=== PATIENT | female | born 1935 | race Caucasian/White ===

== ENCOUNTER → 2016-04-12 | Outpatient (CLI) | payer OTHER ==
[~2016-04-12] MED LIST: ASPI81TA28 PO; CALC600T9 PO; CENTTAB41 PO; FISHOIL PO; FLUTICASONE INH; FSM70 PO; LEVO25TA34 PO; LISI5TAB3 PO; MAGNESIUM PO; Vitamin D PO
[2016-04-12 10:33] LABS: BLOOD UREA NITROGEN 25 mg/dl (7-18); BUN/CREATININE RATIO 30.4 (10-20); CALCIUM 9.6 mg/dl (8.5-10.1); CARBON DIOXIDE 32 mmol/L (21-32); CHLORIDE 103 mmol/L (98-107); CREATININE 0.81 mg/dl (0.60-1.20); GLUCOSE 111 mg/dl (70-99); POTASSIUM 4.5 mmol/L (3.5-5.1); SODIUM 143 mmol/L (136-145)
== END | disposition home or self-care (01) ==
LOC: C.LABFOXMH 10:06
PROVIDERS: ATTEND Internal Medicine
DX: R60.0 Localized edema (principal)

== ENCOUNTER → 2016-07-21 | Outpatient (CLI) | payer OTHER ==
--- NOTE | 2016-07-21 13:57 | MAMMOGRAPHY REPORT ---
BILATERAL DIGITAL DIAGNOSTIC MAMMOGRAM TOMOSYNTHESIS WITH CAD: 07/21/2016 CLINICAL HISTORY: Short interval follow-up of right breast calcifications and right breast asymmetri es. TECHNIQUE: Breast tomosynthesis in addition to standard 2D mammography was performed. Current study was also evaluated with a Computer Aided Detection (CAD) system. Bilateral CC and MLO 2-D and chelle synthesis images and spot magnification right CC and ML views were obtained. COMPARISON: Comparison is made to exams dated: 01/05/2016 mammogram, 06/13/2015 mammogram, 06/04/2015 u ltrasound, 06/04/2015 mammogram, 05/28/2015 mammogram, and 05/16/2014 [facility] emergency department - [facility]. BREAST COMPOSITION: There are scattered areas of fibroglandular density in both breasts. FINDINGS: Spot magnification views of the right breast again demonstrate a small 2 mm cluster of calcification s in the right lower inner quadrant. The calcifications do not appear significantly changed in numb er compared to the January 2016 exam, however, some of the calcifications appear more coarsened. Wh en reviewing prior mammograms, the calcifications do appear increased compared to prior exams includ ing the May 2015 exam. Given the interval increase, stereotactic biopsy is recommended. On di scussion, however, the patient prefers follow-up as opposed to biopsy. The remainder of both breasts are stable compared to prior exams, without suspicious masses, calcifi cations, or areas of architectural distortion noted. The previously described asymmetries seen with in the right upper outer quadrant are stable dating back to at least the April 2013 exam, and are felt to be benign given long-term stability. Other scattered bilateral benign-appearing calcificati ons are stable. IMPRESSION: ACR-BI-RADS CATEGORY 3: PROBABLY BENIGN 1. Small cluster of calcifications in the right lower inner quadrant is not significantly changed c ompared to the January 2016 exam, but appear increased compared to exams prior to January 2016. The calcifications are indeterminate and stereotactic biopsy is recommended for further evaluation. Af ter discussion with the patient, she prefers short interval follow-up as opposed biopsy. Therefore, recommend follow-up diagnostic tomosynthesis mammograms of the right breast in 6 months to reevalua te. 2. The right upper outer quadrant asymmetries are stable dating back to at least the April 2013 e xam and are considered benign given long-term stability. 3. No mammographic evidence of malignancy in the left breast. The patient has been verbally notified of the results. Approximately 10% of breast cancers are not detected with mammography. A negative mammographic repor t should not delay biopsy if a clinically suggestive mass is present. Sushila Padilla M.D. ah/:07/21/2016 12:01:58 [employer] Supervisor: Latosha DING)(Kira), [facility] letter sent: Follow Up Recommended 3 BI-RADS Code: ACR-BI-RADS Category 3: Probably Benign
== END | disposition home or self-care (01) ==
LOC: C.MAMM 11:13
PROVIDERS: ATTEND Internal Medicine
DX: R92.1 Mammographic calcification found on diagnostic imaging of breast (principal); R92.8 Other abnormal and inconclusive findings on diagnostic imaging of breast; C95.10 Chronic leukemia of unspecified cell type not having achieved remission; E03.9 Hypothyroidism, unspecified; R78.89 Finding of other specified substances, not normally found in blood

== ENCOUNTER 2017-06-21 13:38 | Observation (INO) | payer OTHER ==
[~2017-06-21] VITALS: Ht 152.4 cm; Wt 103.5 kg
[~2017-06-21 13:38] MED LIST changes: +IMPRIMIS OP SCH
[2017-06-21 14:47] LABS: HEMATOCRIT 44.1 % (37-47); HEMOGLOBIN 14.6 g/dL (12.0-16.0); MEAN CELL VOLUME 97.1 fL (80-100); MEAN CORPUSCULAR HEMOGLOBIN 32.2 pg (25-34); MEAN CORPUSCULAR HGB CONC 33.1 g/dl (32-36); MEAN PLATELET VOLUME 9.6 fL (7.4-10.4); PLATELET COUNT 162 K/uL (130-400); RED CELL DISTRIBUTION WIDTH CV 13.4 % (11.5-14.5); RED CELL DISTRIBUTION WIDTH SD 47.9 fL (36.4-46.3); WHITE BLOOD COUNT 13.48 K/uL (4.8-10.8)
[2017-06-21] MEDS ORDERED: FLUT50SP45 NAE (14:51)
[2017-06-21] MEDS ORDERED: POTA10CA28 PO (14:51)
[2017-06-21] MEDS ORDERED: FSM70 PO (14:51)
[2017-06-21] MEDS ORDERED: LEVO25TA PO (14:51)
[2017-06-21] MEDS ORDERED: MULT-506 PO (14:51)
--- NOTE | 2017-06-21 15:16 | DIAGNOSTIC IMAGING REPORT ---
CHEST ONE VIEW PORTABLE CLINICAL HISTORY: Respiratory distress COMPARISON STUDY: 02/11/2015 FINDINGS: The heart remains mildly enlarged. There is persistent prominence of central pulmonary arteries. There is no overt failure. There is no lobar consolidation. There is a stable area of nodular scarring within the left midlung zone.[ IMPRESSION: No significant change from the preceding 2014 study. No acute findings Electronically signed by: Dheeraj Allan M.D. 06/21/2017 3:14 PM Dictated Date/Time: 06/21/2017 3:14 PM
[2017-06-21 15:26] LABS: ALBUMIN 3.6 gm/dl (3.4-5.0); ALKALINE PHOSPHATASE 84 U/L (45-117); ALT/SGPT 22 U/L (12-78); BLOOD UREA NITROGEN 23 mg/dl (7-18); CALCIUM 9.3 mg/dl (8.5-10.1); CARBON DIOXIDE 29 mmol/L (21-32); CREATININE 1.08 mg/dl (0.60-1.20); GLUCOSE 137 mg/dl (70-99); SODIUM 139 mmol/L (136-145); TOTAL PROTEIN 6.8 gm/dl (6.4-8.2)
[2017-06-21 15:41] LABS: BASO % 0.2 %; BASO ABS # 0.03 K/uL (0-0.2); EOS % 1.3 %; EOS ABS # 0.17 K/uL (0-0.5); IG# 0.05 K/uL (0.00-0.02); LYMPH % 53.2 %; LYMPH ABS # 7.17 K/uL (1.2-3.4); MONO % 6.7 %; NEUT % 38.2 %; NEUT ABS # 5.16 K/uL (1.4-6.5)
[2017-06-21] MEDS ORDERED: FUROSEMIDE 40 MG/4 ML VIAL IV STA ×2 (16:03→16:06)
[2017-06-21] MEDS: NITROGLYCERIN 2% OINTMENT 30GM TUBE EXT SCH ×2 (16:20→22:43)
[2017-06-21] MEDS ORDERED: HydrALAZINE HCL 20 MG/ML VIAL IV. PRN (18:00)
--- NOTE | 2017-06-21 18:30 | History and Physical ---
History & Physical Date & Time of Service: Jun 21, 2017 at 17:56 Chief Complaint: Irratic Breathing, Swollen Ankles Primary Care Physician: Gallo Saravia M.D. History of Present Illness Source: patient Patient is a pleasant 81yo C female with history of CLL on surveillance, HTN, Hypothyroidism presenting with shortness of breath, "irratic breathing" and bilateral LE edema. Patient had right cataract surgery today and was noted to be very short of breath. She was sent to her PCPs office and subsequently transferred to [facility] ER due to concern for elevated blood pressure and shortness of breath. The patient states that she has had a progressive decrease in exercise tolerance with easy fatigability and PETERS for the last 4-5 months with rapid progresssion over the last 2 weeks. She also endorses worsening bilateral LE edema over the last two weeks and some orthopnea. On arrival to the ER she was found to be hypertensive 179/88 with O2 sats 92% on room air. She was administered Lasix 20mg IV and Nitropaste x 1 inch. Patient presently complaining of mild shortness of breath and PETERS. No CP/palpitations/GIRALDO/visual changes. No dizziness/numbness/tingling or weakness. She reports not taking her medications today due to surgery. She also reports self-discontinuing her Synthroid 4-5 months ago. No additional complaints. ER Course: Nitropaste x 1 inch, Lasix 20mg IV Past Medical/Surgical History Medical Problems: (1) Chronic lymphocytic leukemia (CLL), B-cell (2) Hypertension (3) Hypothyroidism (4) Osteoporosis (5) "Hole in heart" Surgical Problems: (1) Total knee replacement status bilateral (2) Tonsillectomy (3) Appendectomy Family History Hypertension CVA Colorectal cancer Diabetes Social History , lives with at [facility] Active and independent in ADLs Smoking Status: Former Smoker Smokeless Tobacco Use: No Alcohol Use: occasionally Drug Use: none Marital Status: Housing status: lives with family Occupational Status: retired Immunizations History of Influenza Vaccine: N/A History of Tetanus Vaccine?: No History of Pneumococcal: Yes Pneumococcal Date: August 20, 2009 History of Hepatitis B Vaccine: No Allergies Coded Allergies: No Known Allergies (Verified , 06/21/17) Home Medications Scheduled Alendronate Sodium (Alendronate Sodium), 70 MG PO WK Aspirin (Aspirin Ec), 81 MG PO DAILY Fluticasone Propionate (Nasal) (Allergy Nasal [place] 24 Ho), 2 SPRAYS ADRIANA DAILY Levothyroxine Sodium (Synthroid), 25 MCG PO DAILY Multivitamin (Multivitamin), 1 TAB PO DAILY Potassium Chloride (Micro-K Ext Rel), 10 MEQ PO DAILY Review of Systems Constitutional: No fever, No chills, No weight loss Eyes: No worsening of vision, No diplopia ENT: No hearing loss Respiratory: + shortness of breath, + dyspnea on exertion, + dyspnea at rest, No cough, No sputum, No hemoptysis Cardiovascular: + orthopnea, + edema, No chest pain, No palpitations Abdomen: No pain, No nausea, No vomiting, No diarrhea Genitourinary - Female: No dysuria Neurologic: No weakness, No numbness/tingling, No balance problems Physical Exam Vital Signs Date Time Temp Pulse Resp B/P (MAP) Pulse Ox O2 Delivery O2 Flow Rate FiO2 06/21/17 17:30 75 16 129/84 96 Nasal Cannula 2.0 06/21/17 16:41 80 16 201/95 97 Nasal Cannula 2.0 06/21/17 15:42 88 24 217/130 98 Nasal Cannula 2.0 06/21/17 14:30 75 24 167/108 96 Nasal Cannula 2.0 06/21/17 14:28 73 06/21/17 14:10 92 Room Air 06/21/17 14:10 92 Room Air 06/21/17 14:10 72 22 179/88 92 Room Air 06/21/17 13:54 92 Nasal Cannula 2.0 06/21/17 13:45 36.4 81 20 151/90 91 Room Air BP 156/82 RUE during my encounter, HR 77 and regular, RR=16, 96% on 2L NC General Appearance: no apparent distress Head: normocephalic (Right pupil dilated, minimally reactive, post-operative changes), atraumatic Eyes: EOMI ENT: normal ENT inspection, hearing grossly normal Neck: supple, no adenopathy, thyroid normal, no JVD Respiratory/Chest: chest non-tender, lungs clear (equal air entry bilaterally, +crackles right mid lung field, no rhonchi/wheezes), no respiratory distress ( patient did become mildly dyspnic with ambulation to the restroom), no accessory muscle use Cardiovascular: regular rate, rhythm, no edema (trace nonpitting LE edema bilaterally), no gallop, no JVD, no murmur (2/6 JOE left sternal border), normal peripheral pulses Abdomen/GI: normal bowel sounds, non tender, soft, no organomegaly Extremities/Musculoskelatal: no calf tenderness, normal capillary refill Neurologic/Psych: alert, oriented x 3 Skin: normal color, warm/dry, no rash Diagnostics Laboratory Results Results Past 24 Hours Test 06/21/17 14:28 06/21/17 15:30 06/21/17 16:09 06/21/17 16:30 Range/Units White Blood Count 13.48 4.8-10.8 K/uL Red Blood Count 4.54 4.2-5.4 M/uL Hemoglobin 14.6 12.0-16.0 g/dL Hematocrit 44.1 37-47 % Mean Corpuscular Volume 97.1 80-100 fL Mean Corpuscular Hemoglobin 32.2 25-34 pg Mean Corpuscular Hemoglobin Concent 33.1 32-36 g/dl Platelet Count 162 130-400 K/uL Mean Platelet Volume 9.6 7.4-10.4 fL Neutrophils (%) (Auto) 38.2 % Lymphocytes (%) (Auto) 53.2 % Monocytes (%) (Auto) 6.7 % Eosinophils (%) (Auto) 1.3 % Basophils (%) (Auto) 0.2 % Neutrophils # (Auto) 5.16 1.4-6.5 K/uL Lymphocytes # (Auto) 7.17 1.2-3.4 K/uL Monocytes # (Auto) 0.90 0.11-0.59 K/uL Eosinophils # (Auto) 0.17 0-0.5 K/uL Basophils # (Auto) 0.03 0-0.2 K/uL RDW Standard Deviation 47.9 36.4-46.3 fL RDW Coefficient of Variation 13.4 11.5-14.5 % Immature Granulocyte % (Auto) 0.4 % Immature Granulocyte # (Auto) 0.05 0.00-0.02 K/uL Smudge Cells PRESENT Prothrombin Time 10.0 9.0-12.0 SECONDS Prothromb Time International Ratio 1.0 0.9-1.1 Activated Partial Thromboplast Time 23.0 21.0-31.0 SECONDS Partial Thromboplastin Ratio 0.9 Sodium Level 139 136-145 mmol/L Potassium Level 4.0 3.5-5.1 mmol/L Chloride Level 103 98-107 mmol/L Carbon Dioxide Level 29 21-32 mmol/L Anion Gap 6.0 3-11 mmol/L Blood Urea Nitrogen 23 7-18 mg/dl Creatinine 1.08 0.60-1.20 mg/dl Est Creatinine Clear Calc Drug Dose 45.8 ml/min Estimated GFR () 56.5 Estimated GFR (Non- 48.8 BUN/Creatinine Ratio 21.0 10-20 Random Glucose 137 70-99 mg/dl Calcium Level 9.3 8.5-10.1 mg/dl Total Bilirubin 0.9 0.2-1 mg/dl Aspartate Amino Transf (AST/SGOT) 14 15-37 U/L Alanine Aminotransferase (ALT/SGPT) 22 12-78 U/L Alkaline Phosphatase 84 45-117 U/L Troponin I < 0.015 0-0.045 ng/ml Pro-B-Type Natriuretic Peptide 55 0-1800 pg/ml Total Protein 6.8 6.4-8.2 gm/dl Albumin 3.6 3.4-5.0 gm/dl Globulin 3.2 2.5-4.0 gm/dl Albumin/Globulin Ratio 1.1 0.9-2 Urine Color YELLOW Urine Appearance CLOUDY CLEAR Urine pH 5.0 4.5-7.5 Urine Specific [place] 1.025 1.000-1.030 Urine Protein NEG NEG Urine Glucose (UA) NEG NEG Urine Ketones NEG NEG Urine Occult Blood NEG NEG Urine Nitrite NEG NEG Urine Bilirubin NEG NEG Urine Urobilinogen NEG NEG Urine Leukocyte Esterase NEG NEG Urine WBC (Auto) 1-5 0-5 /hpf Urine RBC (Auto) 0-4 0-4 /hpf Urine Hyaline Casts (Auto) 1-5 0-5 /lpf Urine Epithelial Cells (Auto) >30 0-5 /lpf Urine Bacteria (Auto) NEG NEG Diagnostic Radiology CHEST ONE VIEW PORTABLE CLINICAL HISTORY: Respiratory distress COMPARISON STUDY: 02/11/2015 FINDINGS: The heart remains mildly enlarged. There is persistent prominence of central pulmonary arteries. There is no overt failure. There is no lobar consolidation. There is a stable area of nodular scarring within the left midlung zone.[ IMPRESSION: No significant change from the preceding 2015 study. No acute findings EKG The study demonstrates normal sinus rhythm at 74bpm, right axis deviation, normal intervals, no ischemic changes. Interpreted by me Impression Assessment and Plan 81 yo C female presenting with 2 weeks of progressive PETERS/SOB and LE edema. 1. Dyspnea - patient presently on 2L O2 by MS with adequate oxygenation, no evidence of respiratory distress. She did become mildly dyspneic with ambulation. Unclear etiology. Patient with no evidence of infection, no documented history of COPD or CHF although with significant smoking history. Wells score for PE = 1 point for malignancy, low risk group, PE unlikely. -Will check 2D echocardiogram - longstanding history of HTN and "hole in heart" -Provide supplemental O2 as needed to maintain SaO2 > 94% 2. LE edema - progressive x 2 weeks. -Check UA for protein -Check TSH and T4, patient with documented history of hypothyroidism, nonadherant to medical management -2D echocardiogram as above -Check LFTs x 1 3. HTN - patient with markedly elevated blood pressures in ED, 156/82 on my assessment. DId not take medications today -Resume home Valsartan-HCTZ 80/12.5mg daily -Hydralazine 5mg IV q 4 hours PRN SBP>170mmHg PRN -Continue to monitor 4. Hypothyroidims - patient reports self discontinuing medications 4-5 months ago -Check TSH, T4 -Resume home Synthroid dose 25mcg po daily 5. F/E/N - Heplock. Monitor electrolytes and replete as needed. AHA diet as tolerated 6. Ppx - Lovenox 40 7. Code - DNR/DNI per discussion with patient 8. Disposition - Medical observation. Anticipate < 2 midnight stay Resuscitation Status DNR VTE Prophylaxis Will order VTE Prophylaxis: Yes
--- NOTE | 2017-06-21 19:24 | EMERGENCY ROOM VISIT NOTE ---
History Report prepared by Nessa: Trina Obrien Under the Supervision of: Dr. Lion Humphries D.O. First contact with patient: 13:55 Chief Complaint: SHORTNESS OF BREATH Stated Complaint: IRRATIC BREATHING, SWOLLEN ANKLES History of Present Illness The patient is a 81 year old female who presents to the Emergency Room with complaints of constant shortness of breath beginning STANDARDS ANALYST. She had cataract surgery this morning and her provider found her to be short of breath after surgery. They recommended that she follow-up with her PCP later today. The patient returned to [facility] and saw her PCP. He also found her to be short of breath and advised her to come to the ED for further evaluation. The patient does not normally wear oxygen. She is typically up and walking around without feeling short of breath. The patient reports some shortness of breath and a slight cough at this time. She also notes swelling in her legs bilaterally. She is unsure when this swelling began. Pt denies headache, change in vision, fevers, chest pain, nausea, vomiting, diarrhea, abdominal pain, pain with urination, and melena. She denies any personal history of heart failure, COPD, or asthma. Source of History: patient Onset: STANDARDS ANALYST Position: chest Quality: other (shortness of breath) Timing: constant Associated Symptoms: + cough, No fevers, No headache, No chest pain, No nausea, No vomiting, No abdominal pain, No melena, No diarrhea, No urinary symptoms Note: Pt notes swelling to legs bilaterally. Review of Systems See HPI for pertinent positives & negatives. A total of 10 systems reviewed and were otherwise negative. Past Medical & Surgical Medical Problems: (1) Chronic lymphocytic leukemia (CLL), B-cell (2) Dyspnea (3) Hypertension Nos (4) Hypothyroidism Nos (5) Lumb/Lumbosac Disc Degen (6) Osteoporosis Surgical Problems: (1) Total knee replacement status Family History Non-pertinent due to advanced age. Social History Smoking Status: Former Smoker Marital Status: Housing Status: lives with significant other Occupation Status: unemployed Current/Historical Medications Scheduled Alendronate Sodium (Alendronate Sodium), 70 MG PO WK Aspirin (Aspirin Ec), 81 MG PO DAILY Fluticasone Propionate (Nasal) (Allergy Nasal [place] 24 Ho), 2 SPRAYS ADRIANA DAILY Levothyroxine Sodium (Synthroid), 25 MCG PO DAILY Multivitamin (Multivitamin), 1 TAB PO DAILY Potassium Chloride (Micro-K Ext Rel), 10 MEQ PO DAILY Allergies Coded Allergies: No Known Allergies (Verified , 06/21/17) Physical Exam Vital Signs Date Time Temp Pulse Resp B/P (MAP) Pulse Ox O2 Delivery O2 Flow Rate FiO2 06/21/17 17:30 75 16 129/84 96 Nasal Cannula 2.0 06/21/17 16:41 80 16 201/95 97 Nasal Cannula 2.0 06/21/17 15:42 88 24 217/130 98 Nasal Cannula 2.0 06/21/17 14:30 75 24 167/108 96 Nasal Cannula 2.0 06/21/17 14:28 73 06/21/17 14:10 92 Room Air 06/21/17 14:10 92 Room Air 06/21/17 14:10 72 22 179/88 92 Room Air 06/21/17 13:54 92 Nasal Cannula 2.0 06/21/17 13:45 36.4 81 20 151/90 91 Room Air Physical Exam GENERAL: Sitting up in bed, dyspneic with conversation, alert, well appearing, well nourished, minimal distress, non-toxic EYE EXAM: normal conjunctiva. Right pupil dilated. OROPHARYNX: no exudate, no erythema, lips, buccal mucosa, and tongue normal and mucous membranes are moist NECK: supple, no nuchal rigidity, no adenopathy, non-tender LUNGS: Diminished at bilateral bases. Normal chest wall mechanics HEART: no murmurs, S1 normal and S2 normal ABDOMEN: abdomen soft, non-tender, normo-active bowel sounds, no masses, no rebound or guarding. BACK: Back is symmetrical on inspection and there is no deformity, no midline tenderness, no CVA tenderness. SKIN: no rashes and no bruising UPPER EXTREMITIES: upper extremities are grossly normal. LOWER EXTREMITIES: Legs equal bilaterally with pitting edema. NEURO EXAM: Normal sensorium, cranial nerves II-XII grossly intact, normal speech, no gross weakness of arms, no gross weakness of legs. Medical Decision & Procedures ER Provider Diagnostic Interpretation: Radiology results as stated below per my review and the radiologist's interpretation: CHEST ONE VIEW PORTABLE CLINICAL HISTORY: Respiratory distress COMPARISON STUDY: 02/11/2015 FINDINGS: The heart remains mildly enlarged. There is persistent prominence of central pulmonary arteries. There is no overt failure. There is no lobar consolidation. There is a stable area of nodular scarring within the left midlung zone.[ IMPRESSION: No significant change from the preceding 2015 study. No acute findings Electronically signed by: Dheeraj Allan M.D. 06/21/2017 3:14 PM Dictated Date/Time: 06/21/2017 3:14 PM Laboratory Results 06/21/17 14:28 Red Blood Count 4.54, Mean Corpuscular Volume 97.1, Mean Corpuscular Hemoglobin 32.2, Mean Corpuscular Hemoglobin Concent 33.1, Mean Platelet Volume 9.6, Neutrophils (%) (Auto) 38.2, Lymphocytes (%) (Auto) 53.2, Monocytes (%) (Auto) 6.7, Eosinophils (%) (Auto) 1.3, Basophils (%) (Auto) 0.2, Neutrophils # (Auto) 5.16, Lymphocytes # (Auto) 7.17, Monocytes # (Auto) 0.90, Eosinophils # (Auto) 0.17, Basophils # (Auto) 0.03 06/21/17 14:28 06/21/17 16:09 Test 06/21/17 14:28 06/21/17 15:30 06/21/17 16:09 06/21/17 16:30 White Blood Count 13.48 K/uL (4.8-10.8) Red Blood Count 4.54 M/uL (4.2-5.4) Hemoglobin 14.6 g/dL (12.0-16.0) Hematocrit 44.1 % (37-47) Mean Corpuscular Volume 97.1 fL (80-100) Mean Corpuscular Hemoglobin 32.2 pg (25-34) Mean Corpuscular Hemoglobin Concent 33.1 g/dl (32-36) Platelet Count 162 K/uL (130-400) Mean Platelet Volume 9.6 fL (7.4-10.4) Neutrophils (%) (Auto) 38.2 % Lymphocytes (%) (Auto) 53.2 % Monocytes (%) (Auto) 6.7 % Eosinophils (%) (Auto) 1.3 % Basophils (%) (Auto) 0.2 % Neutrophils # (Auto) 5.16 K/uL (1.4-6.5) Lymphocytes # (Auto) 7.17 K/uL (1.2-3.4) Monocytes # (Auto) 0.90 K/uL (0.11-0.59) Eosinophils # (Auto) 0.17 K/uL (0-0.5) Basophils # (Auto) 0.03 K/uL (0-0.2) RDW Standard Deviation 47.9 fL (36.4-46.3) RDW Coefficient of Variation 13.4 % (11.5-14.5) Immature Granulocyte % (Auto) 0.4 % Immature Granulocyte # (Auto) 0.05 K/uL (0.00-0.02) Smudge Cells PRESENT Prothrombin Time 10.0 SECONDS (9.0-12.0) Prothromb Time International Ratio 1.0 (0.9-1.1) Activated Partial Thromboplast Time 23.0 SECONDS (21.0-31.0) Partial Thromboplastin Ratio 0.9 Anion Gap 6.0 mmol/L (3-11) Est Creatinine Clear Calc Drug Dose 45.8 ml/min Estimated GFR () 56.5 Estimated GFR (Non- 48.8 BUN/Creatinine Ratio 21.0 (10-20) Calcium Level 9.3 mg/dl (8.5-10.1) Total Bilirubin 0.9 mg/dl (0.2-1) Alanine Aminotransferase (ALT/SGPT) 22 U/L (12-78) Alkaline Phosphatase 84 U/L (45-117) Troponin I < 0.015 ng/ml (0-0.045) Pro-B-Type Natriuretic Peptide 55 pg/ml (0-1800) Total Protein 6.8 gm/dl (6.4-8.2) Albumin 3.6 gm/dl (3.4-5.0) Globulin 3.2 gm/dl (2.5-4.0) Albumin/Globulin Ratio 1.1 (0.9-2) Thyroid Stimulating Hormone (TSH) 2.280 uIu/ml (0.300-4.500) Free Thyroxine 1.14 ng/dl (0.80-1.60) Aspartate Amino Transf (AST/SGOT) 14 U/L (15-37) Urine Color YELLOW Urine Appearance CLOUDY (CLEAR) Urine pH 5.0 (4.5-7.5) Urine Specific [place] 1.025 (1.000-1.030) Urine Protein NEG (NEG) Urine Glucose (UA) NEG (NEG) Urine Ketones NEG (NEG) Urine Occult Blood NEG (NEG) Urine Nitrite NEG (NEG) Urine Bilirubin NEG (NEG) Urine Urobilinogen NEG (NEG) Urine Leukocyte Esterase NEG (NEG) Urine WBC (Auto) 1-5 /hpf (0-5) Urine RBC (Auto) 0-4 /hpf (0-4) Urine Hyaline Casts (Auto) 1-5 /lpf (0-5) Urine Epithelial Cells (Auto) >30 /lpf (0-5) Urine Bacteria (Auto) NEG (NEG) Laboratory results per my review. Medications Administered Medications (Trade) Dose Ordered Sig/Kathryn Route Start Time Stop Time Status Last Admin Dose Admin Nitroglycerin (Nitroglycerin 2% Oint) 1 inch Q6H EXT 06/21/17 16:15 07/21/17 16:14 06/21/17 16:20 1 INCH Furosemide (Lasix Inj) 20 mg NOW STAT IV 06/21/17 16:06 06/21/17 16:07 DC 06/21/17 16:20 20 MG ECG Per My Interpretation Indication: SOB/dyspnea Rate (beats per minute): 74 Rhythm: normal sinus Findings: Q waves (Septal), other (normal axis) ED Course ED COURSE: Vital signs were reviewed and showed hypertensive. The patients medical record was reviewed The above diagnostic studies were performed and reviewed. ED treatments and interventions as stated above. 1355: The patient was evaluated in room C6. A complete history and physical examination was performed. 1532: I reassessed the patient and she will have an ambulatory trial. 1550: The patient's O2 saturation dropped to 85% while walking. 1606: Lasix 20 mg IV 1615: Nitroglycerin 9 inch EXT 1627: Upon reevaluation, the patient is resting comfortably. I discussed my findings with the patient and she understands and agrees with the treatment plan. Based on the patients age, coexisting illnesses, exam and lab findings the decision to treat as an inpatient was made. The patient remained stable while under my care. The patient will be evaluated for further management. 1629: I spoke with Dr. Roa. We discussed the patient's case. The patient will be evaluated by the [facility] for further management. Medical Decision Differential diagnoses includes but is not limited to pneumonia, bronchitis, COPD/Asthma exacerbation, pneumothorax, pulmonary embolism, congestive heart failure, acute coronary syndrome. Patient is a 81-year-old female who presents to ER referred in by PCP for shortness of breath. Recently has had some weight gain. She has bilateral pitting edema on lower extremities. CBC shows a mild leukocytosis. BMP along with LFTs, bilirubin and troponin were negative. BNP was negative. UA was normal. Chest x-ray was unremarkable. She did have extensive pitting edema in the lower extremities. She was hypoxic on ambulation. With her recent weight gain and to give her a small dose of Lasix. She was fairly hypertensive in 200s and was placed on Nitropaste. She was in no respiratory distress. She was admitted to internal medicine with shortness of breath, hypoxia and likely CHF. Medication Reconcilliation Current Medication List: was personally reviewed by me Blood Pressure Screening Patient's blood pressure: Elevated blood pressure Blood pressure disposition: Elevated BP felt to be situational Consults Time Called: 1627 Consulting Physician: Dr. Roa Returned Call: [address] Roa. We discussed the patient's case. The patient will be evaluated by the [facility] for further management. Impression Primary Impression: Shortness of breath Additional Impressions: Hypoxia CHF (congestive heart failure) Scribe Attestation The scribe's documentation has been prepared under my direction and personally reviewed by me in its entirety. I confirm that the note above accurately reflects all work, treatment, procedures, and medical decision making performed by me. Departure Information Dispostion Being Evaluated By Hospitalist Referrals Gallo Saravia M.D. (PCP) Patient Instructions My [facility] Problem Qualifiers Additional Impressions: CHF (congestive heart failure) Heart failure type: unspecified Heart failure chronicity: unspecified Qualified Codes: I50.9 - Heart failure, unspecified
[2017-06-21] MEDS ORDERED: ENOXAPARIN 40 MG/0.4 ML SYR SQ SCH (20:00)
[2017-06-21] MEDS ORDERED: IV FLUIDS COMPLETED PRN (20:15)
[2017-06-21 20:16] VITALS: BP 135/76; PULSE 74; TEMP 36.8; O2SAT 96; Ht 152.4 cm; Wt 103.5 kg
[2017-06-21] MEDS ORDERED: VALSARTAN/HCTZ 80/12.5 MG TAB PO SCH (21:00)
[2017-06-21] MEDS ORDERED: HYDROCHLOROTHIAZIDE 25 MG TAB PO SCH (21:00)
[2017-06-21] MEDS ORDERED: VALSARTAN 80 MG TAB PO SCH (21:00)
[2017-06-21 22:43] VITALS: BP 143/82; PULSE 75
[2017-06-21 23:39] VITALS: BP 112/74; PULSE 72; TEMP 36.9; O2SAT 95
[2017-06-22] MEDS ORDERED: LEVOTHYROXINE 25 MCG TAB PO SCH (06:30)
[2017-06-22 07:05] VITALS: BP 112/67; PULSE 77; TEMP 36.4; O2SAT 96
[2017-06-22 07:15] LABS: HEMOGLOBIN 14.2 g/dL (12.0-16.0); MEAN CELL VOLUME 98.2 fL (80-100); MEAN CORPUSCULAR HEMOGLOBIN 31.7 pg (25-34); MEAN CORPUSCULAR HGB CONC 32.3 g/dl (32-36); MEAN PLATELET VOLUME 9.6 fL (7.4-10.4); PLATELET COUNT 155 K/uL (130-400); RED CELL DISTRIBUTION WIDTH CV 13.2 % (11.5-14.5); RED CELL DISTRIBUTION WIDTH SD 47.2 fL (36.4-46.3); WHITE BLOOD COUNT 14.97 K/uL (4.8-10.8)
[2017-06-22 07:31] LABS: CALCIUM 9.4 mg/dl (8.5-10.1); CREATININE 0.96 mg/dl (0.60-1.20); PHOSPHORUS 3.5 mg/dl (2.5-4.9)
[2017-06-22 08:00] VITALS: O2SAT 96
[2017-06-22 08:03] LABS: BASO % 0.2 %; BASO ABS # 0.03 K/uL (0-0.2); EOS % 1.3 %; IG# 0.03 K/uL (0.00-0.02); LYMPH ABS # 8.69 K/uL (1.2-3.4); MONO % 7.7 %; MONO ABS # 1.15 K/uL (0.11-0.59); NEUT % 32.6 %; NEUT ABS # 4.87 K/uL (1.4-6.5)
[2017-06-22] MEDS ORDERED: FLUTICASONE PROPIONATE NA SPR 16 GM BTL NAE SCH (09:00)
[2017-06-22] MEDS ORDERED: MULTIVITAMIN TAB PO SCH (09:00)
[2017-06-22] MEDS ORDERED: ASPIRIN 81 MG ECTAB PO SCH (09:00)
[2017-06-22] MEDS ORDERED: DVN80 PO ×2 (10:32→10:41)
[2017-06-22] MEDS ORDERED: HYDR25TA5 PO (10:32)
--- NOTE | 2017-06-22 10:34 | Discharge Instructions ---
Discharge Instructions Date of Service Jun 22, 2017. Admission Reason for Admission: Dyspnea Discharge Discharge Diagnosis / Problem: Dyspnea Discharge Goals Goal(s): Decrease discomfort, Improve function, Improve disease control, Learn about illness, Diagnostic testing, Therapeutic intervention, Prevent Disease Progression Activity Recommendations Activity Limitations: resume your previous activity . Instructions / Follow-Up Instructions / Follow-Up Resume all regular home medications as prescribed. It is recommended you follow-up with your PCP to get an ECHO to help further assess your shortness of breath. FOLLOW-UPS: Please follow-up with your PCP within 3-5 days Please follow-up/keep all of your subspecialty appointments Current Hospital Diet Patient's current hospital diet: AHA Diet (Heart Healthy) Discharge Diet Recommended Diet: AHA Diet (Heart Healthy) Pending Studies Studies pending at discharge: no Medical Emergencies . Who to Call and When: Medical Emergencies: If at any time you feel your situation is an emergency, please call 911 immediately. . Non-Emergent Contact Non-Emergency issues call your: Primary Care Provider Call Non-Emergent contact if: you have a fever, you have any medication questions . . "Provider Documentation" section prepared by Meena Rowell. .
[2017-06-22] MEDS ORDERED: HYDR12.56 PO (10:41)
[2017-06-22] MEDS ORDERED: FUROSEMIDE INJ 20 MG in SYRINGE 0 ML IV ONE (10:45)
--- NOTE | 2017-06-22 10:52 | Discharge Summary ---
Discharge Summary Date of Service Jun 22, 2017. Discharge Summary Admission Date: Jun 21, 2017 at 17:47 Discharge Date: Jun 22, 2017 Discharge Disposition: Home Principal Diagnosis: Dyspnea Problems/Secondary Diagnoses: (1) Chronic lymphocytic leukemia (CLL), B-cell Status: Chronic (2) Hypertension Nos Status: Chronic (3) Hypothyroidism Nos Status: Chronic (4) Lumb/Lumbosac Disc Degen Status: Chronic (5) Osteoporosis Status: Chronic LE edema Immunizations: Have You Had Influenza Vaccine: N/A History of Tetanus Vaccine?: No History of Pneumococcal: Yes Pneumococcal Date: August 20, 2009 History of Hepatitis B Vaccine: No Procedures: CHEST ONE VIEW PORTABLE CLINICAL HISTORY: Respiratory distress COMPARISON STUDY: 02/11/2015 FINDINGS: The heart remains mildly enlarged. There is persistent prominence of central pulmonary arteries. There is no overt failure. There is no lobar consolidation. There is a stable area of nodular scarring within the left midlung zone.[ IMPRESSION: No significant change from the preceding 2014 study. No acute findings Electronically signed by: Dheeraj Allan M.D. 06/21/2017 3:14 PM Dictated Date/Time: 06/21/2017 3:14 PM The status of this report is Signed. Draft = Not yet reviewed or approved by Radiologist. Signed = Reviewed and approved by Radiologist. Medication Reconciliation Continued Medications: Alendronate Sodium (Alendronate Sodium) 70 Mg Tab 70 MG PO WK TAKES ON Aspirin (Aspirin Ec) 81 Mg Tab 81 MG PO DAILY Fluticasone Propionate (Nasal) (Allergy Nasal Aldrich 24 Ho) 50 Mcg/Act Spr 2 SPRAYS ADRIANA DAILY Hydrochlorothiazide (Hctz) 12.5 Mg Cap 1 CAP PO DAILY for 30 Days, #30 CAP 5 Refills Levothyroxine Sodium (Synthroid) 25 Mcg Tab 25 MCG PO DAILY Multivitamin (Multivitamin) Tab 1 TAB PO DAILY, TAB Potassium Chloride (Micro-K Ext Rel) 10 Meq Capcr 10 MEQ PO DAILY Valsartan (Diovan) 80 Mg Tab 1 TAB PO DAILY for 30 Days, #30 TAB 5 Refills Discharge Exam Patient states she is feeling well this AM. SOB has resolved- no 93% on RA. ECHO was ordered, but patient refused to have ECHO this admission and would like to f/u w/ PCP. On admission note, states patient has not been taking Synthroid- however, /patient confirm she has been taking medication as prescribed. Patient requesting discharge as she recently had cataract surgery and has a f/u appointment at noon today. states patient is at her baseline, SOB seems to be resolved, and feels comfortable with her going home today. Review of Systems: Constitutional: No fever, No chills, No sweats, No weakness, No fatigue Eyes: No worsening of vision ENT: No hearing loss Respiratory: No cough, No shortness of breath, No hemoptysis Cardiovascular: No chest pain, No edema, No palpitations Abdomen: No pain, No nausea, No vomiting, No diarrhea, No constipation Musculoskeletal: No joint pain, No muscle pain, No swelling, No calf pain Genitourinary - Female: No dysuria, No hematuria Neurologic: No weakness, No numbness/tingling Psychiatric: No depression symptoms, No anxiety Endocrine: No fatigue Hematologic / Lymphatic: No abnormal bleeding/bruising Integumentary: No rash, No itch, No new/changing skin lesions Physical Exam: General Appearance: no apparent distress Eyes: normal inspection, PERRL ENT: hearing grossly normal Neck: supple Respiratory/Chest: lungs clear, no respiratory distress, no accessory muscle use, + decreased breath sounds (throughout ) Cardiovascular: regular rate, rhythm, + systolic murmur Abdomen / GI: normal bowel sounds, non tender, soft Extremities: no calf tenderness, no pedal edema Neurologic/Psychiatric: alert, normal mood/affect, oriented x 3 Skin: normal color, warm/dry, no rash Hospital Course 81 y/o C female presenting with 2 weeks of progressive PETERS/SOB and LE edema. Dyspnea, unclear etiology- RESOLVED: - Admitted to med/surg- no acute events - O2 protocol- now on RA - CXR w/out acute findings - ECHO- patient declined ECHO this hospital stay- recommend PCP f/u for ECHO - Treated w/ IV Lasix 20 mg- little output recorded, BNP 55- no further Lasix- recommend PCP f/u LE edema- progressive x 2 weeks- no edema noted on exam today: - Treated w/ dose of Lasix yesterday, does not appear to be in CHF exacerbation - Recommend PCP f/u HTN- STABLE: - HTN on admission- did NOT take medications- RESOLVED - Continue Valsartan-HCTZ 80/12.5mg daily - Hydralazine 5mg IV q 4 hours PRN SBP >170mmHg PRN Hypothyroidism- TSH 2.280: Continue Synthroid 25 mcg daily DVT prophylaxis: Lovenox SQ Code status: LEVEL V, DNR Dispo: Discharge to home Total Time Spent: Greater than 30 minutes This includes examination of the patient, discharge planning, medication reconciliation, and communication with other providers. Discharge Instructions Please refer to the electronic Patient Visit Report (Discharge Instructions) for additional information. Follow-Up Please follow-up with your PCP within 3-5 days Please follow-up/keep all of your subspecialty appointments Additional Copies To Gallo Saravia M.D.
[2017-06-22 11:32] VITALS: BP 112/67; PULSE 77; TEMP 36.4; O2SAT 96
== END 2017-06-22 11:50 | disposition home or self-care (01) ==
LOC: C.EDB 13:40 → C.MS2W 17:47 → ENRESERV 18:04
PROVIDERS: ADMIT Internal Medicine; ATTEND Internal Medicine
DX: R06.00 Dyspnea, unspecified (principal); C91.10 Chronic lymphocytic leukemia of B-cell type not having achieved remission; I11.0 Hypertensive heart disease with heart failure; I50.9 Heart failure, unspecified; E03.9 Hypothyroidism, unspecified; M51.37 Other intervertebral disc degeneration, lumbosacral region; M81.0 Age-related osteoporosis without current pathological fracture; Z96.653 Presence of artificial knee joint, bilateral; Z79.82 Long term (current) use of aspirin; Z90.49 Acquired absence of other specified parts of digestive tract; Z87.891 Personal history of nicotine dependence; Z66 Do not resuscitate; Z82.49 Family history of ischemic heart disease and other diseases of the circulatory system; Z82.3 Family history of stroke; Z83.3 Family history of diabetes mellitus; Z80.0 Family history of malignant neoplasm of digestive organs

== ENCOUNTER → 2017-07-04 | Outpatient (CLI) | payer OTHER ==
[~2017-07-04] MED LIST changes: -CALC600T9 PO; -CENTTAB41 PO; +DVN80 PO; -FISHOIL PO; +FLUT50SP45 NAE; -FLUTICASONE INH; +HYDR12.56 PO; -IMPRIMIS OP SCH; +LEVO25TA PO; -LEVO25TA34 PO; -LISI5TAB3 PO; -MAGNESIUM PO; +MULT-506 PO; +POTA10CA28 PO; -Vitamin D PO
--- NOTE | 2017-07-04 16:31 | ECHOCARDIOGRAM REPORT ---
*NOTICE TO RECEIVING [employer] This information is strictly Confidential and protected under [place] law. [place] law prohibits you from making any further disclosure of this information unless further disclosure is expressly permitted by the written consent of the person to whom it pertains or is authorized by law. A general authorization for the release of medical or other information is not sufficient for this purpose. Hospital accepts no responsibility if the information is made available to any other person, INCLUDING THE PATIENT. Interpretation Summary * Name: RAHEEM WEN Study Date: 07/04/2017 12:54 PM BP: 128/88 mmHg * Patient Location: [facility]\S\W256\S\1 HR: 73 * : 1935 (M/d/yyyy) Gender: Female Height: 60 in * Age: 81 yrs Ethnicity: [place] Weight: 223 lb * Ordering Physician: Corrie Chiang * Referring Physician: Corrie Chiang * Performed By: Ermelinda Noyola RDCS * * Reason For Study: Shortness of Breath * BSA: 2.0 m2 * -- Conclusions -- * Left ventricular systolic function is normal. * No regional wall motion abnormalities noted. * Ejection Fraction = 60-65%. * There is mild concentric left ventricular hypertrophy. * Grade I diastolic dysfunction, (abnormal relaxation pattern). * A secundum type atrial septal defect is present. * There is mild mitral regurgitation. * There is mild to moderate tricuspid regurgitation. Procedure Details * A complete two-dimensional transthoracic echocardiogram was performed (2D, M-mode, Doppler and color flow Doppler). Left Ventricle * The left ventricle is normal in size. * There is mild concentric left ventricular hypertrophy. * Ejection Fraction = 60-65%. * Left ventricular systolic function is normal. * No regional wall motion abnormalities noted. Right Ventricle * The right ventricle is mildly dilated. * The right ventricular systolic function is normal as assessed by tricuspid annular plane systolic excursion (TAPSE) (normal >1.5 cm). Atria * The left atrium is moderately dilated. * The right atrium is mildly dilated. * A secundum type atrial septal defect is present. * Atrial septal defect measures approximately 1.3 cm. Mitral Valve * The mitral valve is not well visualized. * There is moderate to severe mitral annular calcification. * There is mild mitral regurgitation. Tricuspid Valve * The tricuspid valve is not well visualized, but is grossly normal. * There is no tricuspid stenosis. * There is mild to moderate tricuspid regurgitation. * Right ventricular systolic pressure is elevated at 40-50mmHg. Aortic Valve * The aortic valve is trileaflet. * The aortic valve opens well. * No hemodynamically significant valvular aortic stenosis. * There is no significant aortic regurgitation. Pulmonic Valve * The pulmonary valve is not well seen, but the Doppler examination is normal without significant regurgitation or stenosis. Great Vessels * The aortic root is normal size. * The pulmonary is not well visualized. Left Ventricular Diastolic Function * Grade I diastolic dysfunction, (abnormal relaxation pattern). MMode 2D Measurements and Calculations RVDd 4.3 cm IVSd 1.2 cm IVSs 1.1 cm LVIDd 3.9 cm LVIDs 2.5 cm LVPWd 1.1 cm LVPWs 1.4 cm IVS/LVPW 1.1 FS 34.6 % EDV(Teich) 64.9 ml ESV(Teich) 23.1 ml EF(Teich) 64.4 % EDV(cubed) 58.2 ml ESV(cubed) 16.3 ml EF(cubed) 72.0 % % IVS thick -8.27 % % LVPW thick 32.1 % LV mass(C)d 141.0 grams LV mass(C)dI 72.1 grams/m\S\2 LV mass(C)s 91.3 grams LV mass(C)sI 46.7 grams/m\S\2 SV(Teich) 41.8 ml SI(Teich) 21.4 ml/m\S\2 SV(cubed) 41.9 ml SI(cubed) 21.4 ml/m\S\2 Ao root diam 2.5 cm Ao root area 4.7 cm\S\2 ACS 1.8 cm LA dimension 4.1 cm LA/Ao 1.7 LVOT diam 1.6 cm LVOT area 2.0 cm\S\2 RVOT diam 2.5 cm RVOT area 4.7 cm\S\2 LVAd ap4 19.5 cm\S\2 LVLd ap4 7.1 cm EDV(MOD-sp4) 47.3 ml EDV(sp4-el) 45.3 ml LVAs ap4 11.0 cm\S\2 LVLs ap4 5.7 cm ESV(MOD-sp4) 18.6 ml ESV(sp4-el) 17.7 ml EF(MOD-sp4) 60.6 % EF(sp4-el) 60.9 % LVAd ap2 22.7 cm\S\2 LVLd ap2 7.7 cm EDV(MOD-sp2) 62.6 ml EDV(sp2-el) 56.6 ml LVAs ap2 11.3 cm\S\2 LVLs ap2 6.1 cm ESV(MOD-sp2) 20.0 ml ESV(sp2-el) 17.9 ml EF(MOD-sp2) 68.0 % EF(sp2-el) 68.4 % LVLd %diff 8.1 % EDV(MOD-bp) 54.0 ml LVLs %diff 5.8 % ESV(MOD-bp) 19.4 ml EF(MOD-bp) 64.0 % SV(MOD-sp4) 28.6 ml SI(MOD-sp4) 14.6 ml/m\S\2 SV(MOD-sp2) 42.6 ml SI(MOD-sp2) 21.8 ml/m\S\2 SV(MOD-bp) 34.5 ml SI(MOD-bp) 17.7 ml/m\S\2 SV(sp4-el) 27.6 ml SI(sp4-el) 14.1 ml/m\S\2 SV(sp2-el) 38.7 ml SI(sp2-el) 19.8 ml/m\S\2 Doppler Measurements and Calculations MV E max marline 100.3 cm/sec MV A max marline 137.0 cm/sec MV E/A 0.73 MV dec time 0.29 sec Ao V2 max 151.0 cm/sec Ao max PG 9.1 mmHg Ao max PG (full) 2.5 mmHg HERIBERTO(V,A) 1.7 cm\S\2 HERIBERTO(V,D) 1.7 cm\S\2 LV V1 max PG 6.7 mmHg LV V1 mean PG 3.0 mmHg LV V1 max 129.0 cm/sec LV V1 mean 79.6 cm/sec LV V1 VTI 26.9 cm SV(LVOT) 53.7 ml SI(LVOT) 27.5 ml/m\S\2 PA V2 max 139.4 cm/sec PA max PG 7.8 mmHg PA V2 mean 86.0 cm/sec PA mean PG 3.4 mmHg PA V2 VTI 31.1 cm TR max marline 317.5 cm/sec
== END | disposition home or self-care (01) ==
LOC: C.CPL 12:45
PROVIDERS: ATTEND Internal Medicine Hospice and Palliative Medicine
DX: R06.02 Shortness of breath (principal)

== ENCOUNTER 2018-08-08 14:21 | Inpatient (IN) ==
--- NOTE | 2018-08-08 14:41 | Emergency Department Note ---
Entered by Kristine Fuentes acting as a scribe for Henrry Hammer DO History of Present Illness General Chief complaint: Shortness of Breath/Dyspnea Stated complaint: LOW PULSE OX, SOB Source: patient History of Present Illness Onset (ago): hour(s) (this morning) Location: chest Severity: similar to prior episodes Pain Consistency: + other (worsening) Quality: + other (shortness of breath) Exacerbated By: + other (laying flat ) Associated symptoms: + other (positive swelling in legs) The patient is a 82 year old female who presents to the Emergency Room with complaints of worsening shortness of breath that began this morning. The patient states that she was getting an echo done when she began to feel short of breath suddenly. The patient denies using nebulizer treatments at home. She states that she has had episodes of shortness of breath previously, and states that she occasionally has shortness of breath with laying flat. The patient states that she has swelling in her legs. Home Medications Home Medications Medication Instructions Recorded Confirmed Type alendronate 70 mg tablet 70 mg PO WK tab 02/07/18 08/08/18 History aspirin 81 mg tablet,delayed 81 mg PO DAILY 02/07/18 08/08/18 History release candesartan 4 mg tablet 4 mg PO DAILY tab 02/07/18 08/08/18 History furosemide 40 mg tablet 40 mg PO DAILY 02/07/18 08/08/18 History levothyroxine 25 mcg capsule 25 mcg PO DAILY 02/07/18 08/08/18 History potassium chloride ER 10 mEq 20 meq PO DAILY 02/07/18 08/08/18 History capsule,extended release albuterol sulfate 2 inha INH Q6H PRN #1 ea 08/08/18 Rx cefdinir 300 mg PO BID 7 Days #14 cap 08/08/18 Rx ferrous sulfate 325 mg PO DAILY 08/08/18 08/08/18 History hydrochlorothiazide 12.5 mg PO DAILY 08/08/18 08/08/18 History omeprazole magnesium [Prilosec OTC] 20 mg PO DAILY 28 Days #28 tab 08/08/18 Rx pramipexole 0.5 mg PO BID 08/08/18 08/08/18 History prednisone 40 mg PO DAILY #10 tab 08/08/18 Rx Allergies Allergy/AdvReac Type Severity Reaction Status Date / Time No Known Allergies Allergy Verified 08/08/18 14:51 Past Med/Surg History Medical History CLL (chronic lymphocytic leukemia) (Chronic) Edema (Chronic) HTN (hypertension) (Chronic) Hx-daniel malform-heart (Chronic) PATENT TAM OVALE Hypothyroid (Chronic) Osteoarthritis (Chronic) Osteoporosis (Chronic) Restless legs syndrome (Chronic) Sleep apnea (Chronic) Hx of colonic polyp (Resolved) Muscle weakness (Resolved) Surgical History S/P appendectomy (Resolved) S/P bilateral cataract extraction (Resolved) S/P breast lumpectomy (Resolved) S/P knee surgery (Resolved) S/P tonsillectomy (Resolved) Social History Preferred Language: Panamanian Communication Ability: Effective Visual Impairment: Limited Hearing Ability: Normal Beliefs That Will Affect Care: None marital status: marital status details: DEAN MERAZ Current Living Situation: Spouse Current Living Situation Comment: DEAN MERAZ current occupational status: retired 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 and A total of 10 systems reviewed and were otherwise negative Physical Exam Vital Signs Vital Signs - 24 hr 08/08/18 14:23 08/08/18 14:33 08/08/18 14:36 Temperature 36.5 C Temperature Source Oral Sepsis Recent Fever Within 48 Hours No Sepsis New/Unexplained Change in Mental Status No Sepsis Action Taken by Nursing No Action Required Pulse Rate 71 Pulse Rate from SpO2 Sensor Respiratory Rate 89 H Respiratory Effort / Characteristics Labored Blood Pressure 152/81 H Blood Pressure Mean 104 Pulse Oximetry 88 L 96 89 L Oxygen Delivery Method Room Air Nasal Cannula Room Air Nasal Cannula Oxygen Flow Rate 5 0 08/08/18 15:08 08/08/18 15:10 08/08/18 15:20 Temperature Temperature Source Sepsis Recent Fever Within 48 Hours Sepsis New/Unexplained Change in Mental Status Sepsis Action Taken by Nursing Pulse Rate 70 72 74 Pulse Rate from SpO2 Sensor 70 72 76 Respiratory Rate 16 29 H 23 Respiratory Effort / Characteristics Blood Pressure Blood Pressure Mean Pulse Oximetry 94 94 94 Oxygen Delivery Method Oxygen Flow Rate 08/08/18 15:30 08/08/18 15:40 08/08/18 15:50 Temperature Temperature Source Sepsis Recent Fever Within 48 Hours Sepsis New/Unexplained Change in Mental Status Sepsis Action Taken by Nursing Pulse Rate 77 74 75 Pulse Rate from SpO2 Sensor 76 75 75 Respiratory Rate 18 16 30 H Respiratory Effort / Characteristics Blood Pressure Blood Pressure Mean Pulse Oximetry 95 96 94 Oxygen Delivery Method Oxygen Flow Rate 08/08/18 16:00 08/08/18 16:10 08/08/18 16:20 Temperature Temperature Source Sepsis Recent Fever Within 48 Hours Sepsis New/Unexplained Change in Mental Status Sepsis Action Taken by Nursing Pulse Rate 72 74 76 Pulse Rate from SpO2 Sensor 72 74 77 Respiratory Rate 17 31 H 16 Respiratory Effort / Characteristics Blood Pressure Blood Pressure Mean Pulse Oximetry 94 94 95 Oxygen Delivery Method Oxygen Flow Rate 08/08/18 16:30 08/08/18 16:40 08/08/18 16:50 Temperature Temperature Source Sepsis Recent Fever Within 48 Hours Sepsis New/Unexplained Change in Mental Status Sepsis Action Taken by Nursing Pulse Rate 76 79 78 Pulse Rate from SpO2 Sensor 76 78 78 Respiratory Rate 22 15 19 Respiratory Effort / Characteristics Blood Pressure Blood Pressure Mean Pulse Oximetry 95 96 97 Oxygen Delivery Method Oxygen Flow Rate 08/08/18 17:00 08/08/18 17:06 08/08/18 17:10 Temperature Temperature Source Sepsis Recent Fever Within 48 Hours Sepsis New/Unexplained Change in Mental Status Sepsis Action Taken by Nursing Pulse Rate 75 77 83 Pulse Rate from SpO2 Sensor 75 78 83 Respiratory Rate 22 22 19 Respiratory Effort / Characteristics Blood Pressure 149/102 H Blood Pressure Mean 117 Pulse Oximetry 97 94 92 Oxygen Delivery Method Oxygen Flow Rate 08/08/18 17:20 08/08/18 18:29 08/08/18 18:30 Temperature Temperature Source Sepsis Recent Fever Within 48 Hours Sepsis New/Unexplained Change in Mental Status Sepsis Action Taken by Nursing Pulse Rate 78 Pulse Rate from SpO2 Sensor 76 190 H 85 Respiratory Rate 29 H Respiratory Effort / Characteristics Blood Pressure Blood Pressure Mean Pulse Oximetry 91 83 L 92 Oxygen Delivery Method Oxygen Flow Rate 08/08/18 18:41 08/08/18 18:50 08/08/18 19:00 Temperature Temperature Source Sepsis Recent Fever Within 48 Hours Sepsis New/Unexplained Change in Mental Status Sepsis Action Taken by Nursing Pulse Rate Pulse Rate from SpO2 Sensor 93 H 74 69 Respiratory Rate Respiratory Effort / Characteristics Blood Pressure Blood Pressure Mean Pulse Oximetry 83 L 84 L 97 Oxygen Delivery Method Oxygen Flow Rate GENERAL: The patient is awake and alert. She is very anxious appearing and appears to be having significant difficulty breathing. EYES: The conjunctivae are clear. The pupils are round and reactive. EARS, NOSE, MOUTH AND THROAT: The nose is without any evidence of any deformity. Mucous membranes are moist tongue is midline NECK: The neck is nontender and supple. RESPIRATORY: Shallow respirations were noted with diminished breath sounds noted throughout. There is significant conversational dyspnea appreciated. CARDIOVASCULAR: Regular rate and rhythm was noted to auscultation. There was a systolic murmur noted. GASTROINTESTINAL: The abdomen is soft. Bowel sounds are present in all quadrants. Abdomen is nontender MUSCULOSKELETAL/EXTREMITIES: There is no evidence of gross deformity full range of motion is noted in the hips and shoulders SKIN: There is no obvious evidence of any rash. Pedal edema was noted bilaterally peer NEUROLOGIC: Patient is awake alert and oriented x3. Course 1432: The patient was evaluated in room A3, and a complete history and physical examination were performed. 1851: The [facility] Hospitalist service was notified about the patient and accepts her for further evaluation. Administered Medications Ioversol (Optiray 320 125ml) 119 ml IV ONCE PRN PRN Reason: Interaction Checking Stop: 08/12/18 18:18 Last Admin: 08/08/18 18:20 Dose: 119 ml Documented by: [id number] Discontinued Medications Albuterol (Duoneb) 3 ml NEB NOW STA Stop: 08/08/18 16:49 Last Admin: 08/08/18 16:58 Dose: 3 ml Documented by: [id number] Cefdinir (Omnicef) 600 mg PO ONE STA Stop: 08/08/18 17:12 Last Admin: 08/08/18 17:25 Dose: 600 mg Documented by: [id number] Pantoprazole Sodium (Protonix) 40 mg PO NOW STA Stop: 08/08/18 17:12 Last Admin: 08/08/18 17:32 Dose: 40 mg Documented by: [id number] Prednisone (Prednisone) 60 mg PO NOW STA Stop: 08/08/18 17:12 Last Admin: 08/08/18 17:32 Dose: 60 mg Documented by: [id number] Medical Decision Making Differential Diagnosis Differential diagnosis: Etiologies such as infections, reactive airway disease, pneumonia, pneumothorax, COPD, CHF, cardiac ischemia, pulmonary embolism, musculoskeletal, ga strointestinal, as well as others were entertained. Medical Records Attestation: I reviewed the patient's medical records. Home Medications Current Medication List: was personally reviewed by me Laboratory Data Attestation: I reviewed the patient's lab results. Result diagrams: 08/08/18 14:56 08/08/18 14:56 Lab Results 08/08/18 08/08/18 08/08/18 Range/Units 14:56 14:56 14:56 WBC 13.34 H (4.8-10.8) K/uL RBC 4.47 (4.2-5.4) M/uL Hgb 14.3 (12.0-16.0) g/dL Hct 43.6 (37-47) % MCV 97.5 (80-100) fL MCH 32.0 (25-34) pg MCHC 32.8 (32-36) g/dL RDW Std Deviation 47.6 H (36.4-46.3) fL RDW Coeff of Beti 13.4 (11.5-14.5) % Plt Count 148 (130-400) K/uL MPV 9.5 (7.4-10.4) fL Immature Gran % (Auto) 0.6 % Neut % (Auto) 42.6 % Lymph % (Auto) 48.8 % [place] % (Auto) 6.7 % Eos % (Auto) 1.2 % Baso % (Auto) 0.1 % Immature Gran # (Auto) 0.08 H (0.00-0.02) K/uL Neut # (Auto) 5.67 (1.4-6.5) K/uL Lymph # (Auto) 6.51 H (1.2-3.4) K/uL [place] # (Auto) 0.90 H (0.11-0.59) K/uL Eos # (Auto) 0.16 (0-0.5) K/uL Baso # (Auto) 0.02 (0-0.2) K/uL PT 10.1 (9.0-12.0) Seconds INR 1.0 (0.9-1.1) APTT 24.7 (21.0-31.0) Seconds PTT Ratio 0.9 VBG pH 7.32 L (7.36-7.41) VBG pCO2 53 H (38-50) mmHg VBG pO2 37 mmHg VBG HCO3 27 mmol/L VBG O2 Saturation 69.8 % VBG Base Excess -0.1 mEq/L Barometric Pressure 733.7 mm/Hg Sodium (136-145) mmol/L Potassium (3.5-5.1) mmol/L Chloride (98-107) mmol/L Carbon Dioxide (21-32) mmol/L Anion Gap (3-11) BUN (7-18) mg/dl Creatinine (0.6-1.2) mg/dl Est Cr Clr Drug Dosing Est GFR ( Amer) Est GFR (Non-Af Amer) BUN/Creatinine Ratio (10-20) Glucose (70-99) mg/dl Calcium (8.5-10.1) mg/dl Magnesium (1.8-2.4) mg/dl Total Bilirubin (0.2-1) mg/dl AST (15-37) U/L ALT (12-78) U/L Alkaline Phosphatase (45-117) U/L Troponin I (0-0.045) ng/ml Total Protein (6.4-8.2) gm/dl Albumin (3.4-5.0) gm/dl Globulin (2.5-4.0) gm/dl Albumin/Globulin Ratio (0.9-2) 08/08/18 Range/Units 14:56 WBC (4.8-10.8) K/uL RBC (4.2-5.4) M/uL Hgb (12.0-16.0) g/dL Hct (37-47) % MCV (80-100) fL MCH (25-34) pg MCHC (32-36) g/dL RDW Std Deviation (36.4-46.3) fL RDW Coeff of Beti (11.5-14.5) % Plt Count (130-400) K/uL MPV (7.4-10.4) fL Immature Gran % (Auto) % Neut % (Auto) % Lymph % (Auto) % [place] % (Auto) % Eos % (Auto) % Baso % (Auto) % Immature Gran # (Auto) (0.00-0.02) K/uL Neut # (Auto) (1.4-6.5) K/uL Lymph # (Auto) (1.2-3.4) K/uL [place] # (Auto) (0.11-0.59) K/uL Eos # (Auto) (0-0.5) K/uL Baso # (Auto) (0-0.2) K/uL PT (9.0-12.0) Seconds INR (0.9-1.1) APTT (21.0-31.0) Seconds PTT Ratio VBG pH (7.36-7.41) VBG pCO2 (38-50) mmHg VBG pO2 mmHg VBG HCO3 mmol/L VBG O2 Saturation % VBG Base Excess mEq/L Barometric Pressure mm/Hg Sodium 141 (136-145) mmol/L Potassium 4.4 (3.5-5.1) mmol/L Chloride 111 H (98-107) mmol/L Carbon Dioxide 28 (21-32) mmol/L Anion Gap 2.0 L (3-11) BUN 21 H (7-18) mg/dl Creatinine 0.72 (0.6-1.2) mg/dl Est Cr Clr Drug Dosing Not Reportable Est GFR ( Amer) 91.7 Est GFR (Non-Af Amer) 79.1 BUN/Creatinine Ratio 28.9 H (10-20) Glucose 114 H (70-99) mg/dl Calcium 8.9 (8.5-10.1) mg/dl Magnesium 2.6 H (1.8-2.4) mg/dl Total Bilirubin 0.7 (0.2-1) mg/dl AST 16 (15-37) U/L ALT 22 (12-78) U/L Alkaline Phosphatase 90 (45-117) U/L Troponin I < 0.015 (0-0.045) ng/ml Total Protein 6.8 (6.4-8.2) gm/dl Albumin 3.7 (3.4-5.0) gm/dl Globulin 3.1 (2.5-4.0) gm/dl Albumin/Globulin Ratio 1.2 (0.9-2) Imaging Data Radiologist's Impression: Radiology results as stated below per my review and the radiologist's interpretation: SINGLE VIEW CHEST CLINICAL HISTORY: Dyspnea. FINDINGS: An AP, portable, upright chest radiograph is compared to study dated 06/16/2018 and correlated with chest CT dated 02/18/2015. The examination is degraded by portable technique and patient rotation. The heart is enlarged and there is atherosclerotic calcification of the thoracic aorta. There is pulmonary vascular congestion. The mitral annulus is densely calcified. Bibasilar atelectasis is noted. No focal airspace consolidation or large pleural effusion is identified. No pneumothorax is seen. The skeletal structures are osteopenic. The bony thorax is grossly intact. IMPRESSION: Cardiomegaly with evidence of mild congestive failure. Electronically signed by: Frankie Noriega M.D. 08/08/2018 3:[address] ANGIOGRAPHY OF THE CHEST, PULMONARY EMBOLUS PROTOCOL CLINICAL HISTORY: Shortness of breath. Evaluate for pulmonary embolus. COMPARISON STUDY: Chest CT February 18, 2015. Chest radiograph August 08, 2018. TECHNIQUE: Following IV administration of 119 mL of Optiray-320, helical axial i mages of the chest were obtained utilizing the pulmonary embolus protocol. Maximal intensity projections and sagittal and coronal reformats were viewed on an independent 3D workstation. IV contrast was administered without complication. Automated exposure control was utilized for the study. A dose lowering technique was utilized adhering to the principles of ALARA. CT DOSE: 851.14 mGy.cm FINDINGS: No pulmonary emboli are identified. There is no evidence of thoracic aortic dissection. The heart is mildly enlarged. There is no pericardial effusion. Moderate coronary artery calcification is present. Central airways are patent. There is no pneumothorax or pleural effusion. Linear opacities reflect atelectasis. Mosaic attenuation with mild groundglass opacities within the lungs is noted. Bony thorax is unremarkable. Prominent upper abdominal lymph nodes are similar to CT of February 18, 2015. These are partially imaged on this exam. IMPRESSION: 1. No pulmonary emboli identified. 2. Mild groundglass opacities with mosaic attenuation within the lungs which may reflect air trapping. No consolidation. 3. Mild cardiomegaly. Moderate coronary artery calcification. 4. Mild dilatation of the central pulmonary arteries. Electronically signed by: Randell Alfred M.D. 08/08/2018 6:39 PM ECG Data Attestation: I personally reviewed and interpreted this ECG as follows: Indication: SOB/dyspnea Rate (beats per minute): 72 Rhythm: normal sinus Findings: + other (no acute ST segment abnormalities); no ectopy Comparison ECG Date: from (06/21/2017) Change: no significant change Blood Pressure Blood Pressure Findings: Elevated blood pressure Blood Pressure Disposition: further management by hospitalist ANANT Little The patient is an 82-year-old female who presented to the emergency department from cardiopulmonary for an evaluation of shortness of breath. The patient had very severe shortness of breath with dyspnea on exertion. She had hypoxia noted on physical exam and vital signs. The patient's dyspnea was very severe and worsened with any exertion. The patient did not appear to have signs of volume overload or pneumonia on chest x-ray. She did have signs of bronchospasm on physical exam. She was treated with DuoNeb therapy and had some improvement in her symptoms. I discussed the patient's laboratory and radiographic studies with her. Initially she requested to be discharged home and was going to sign out AGAINST MEDICAL ADVICE. She was given an antibiotic as well as a steroid. Prior to discharge the patient did agree to admission. For this reason I discussed her case with the on-call [facility] hospitalist. They have agreed to evaluate the patient in the emergency department for further management and disposition. The patient's symptoms were significantly improved at rest as well as with supplement oxygen. CT of the chest did not reveal any signs of pneumonia or pulmonary embolus. Impression & Plan Bronchitis, Hypoxia, Acute dyspnea, Shortness of breath, Respiratory acidosis Discharge Plan Visit Data Chief Complaint: Shortness of Breath/Dyspnea Stated Complaint: LOW PULSE OX, SOB ED Provider: Henrry Hammer Discharge Problem: Bronchitis, Hypoxia, Acute dyspnea, Shortness of breath, Respiratory acidosis Patient Disposition: Being Evaluated by Hospitalist Condition: Fair Discharge Instructions Jannie/Other Patient Handouts: Bronchitis Acute, ED Dyspnea Shortness of Breath Activity Restrictions/Additional Instructions: Rest and avoid any strenuous activity. Continue all medications as prescribed. Follow-up with your family doctor soon as possible. If your symptoms change worsen or if you decide to come back to the emergency department I would recommend he do so immediately. Call 911 if symptoms are severe. Forms Stand Alone Forms: My [facility] [place] Prescriptions Prescriptions: New cefdinir 300 mg capsule 300 mg PO BID 7 Days Qty: 14 RF: 0 prednisone 20 mg tablet 40 mg PO DAILY Qty: 10 RF: 0 Prilosec OTC 20 mg tablet,delayed release (DR/EC) 20 mg PO DAILY 28 Days Qty: 28 RF: 0 albuterol sulfate 90 mcg/actuation aerosol powdr breath activated 2 inha INH Q6H PRN (Reason: shortness of breath or wheezing) Qty: 1 RF: 0 No Action furosemide [Lasix] 40 mg tablet 40 mg PO DAILY RF: 0 candesartan 4 mg tablet 4 mg PO DAILY RF: 0 aspirin [Adult Aspirin Regimen] 81 mg tablet,delayed release (DR/EC) 81 mg PO DAILY RF: 0 potassium chloride 10 mEq capsule, extended release 20 meq PO DAILY RF: 0 alendronate 70 mg tablet 70 mg PO WK RF: 0 levothyroxine 25 mcg capsule 25 mcg PO DAILY RF: 0 pramipexole 0.5 mg Tablet 0.5 mg PO BID RF: 0 ferrous sulfate 325 mg (65 mg iron) Tablet 325 mg PO DAILY RF: 0 hydrochlorothiazide 12.5 mg Capsule 12.5 mg PO DAILY RF: 0 Referrals Referrals: Gallo Saravia MD [Primary Care Provider] - The scribe's documentation has been prepared under my direction and personally reviewed by me in its entirety. I confirm that the note above accurately refle cts all work, treatment, procedures, and medical decision making performed by me.
[2018-08-08 15:20] LABS: Hematocrit (blood only) 43.6 % (37-47); Hemoglobin 14.3 g/dL (12.0-16.0); Mean Corpuscular Hgb Conc 32.8 g/dL (32-36); Mean Corpuscular Volume 97.5 fL (80-100); Mean Platelet Volume 9.5 fL (7.4-10.4); Platelet Count 148 K/uL (130-400); RDW Coefficient of Variation 13.4 % (11.5-14.5); RDW Standard Deviation 47.6 fL (36.4-46.3); Red Blood Count 4.47 M/uL (4.2-5.4); White Blood Count 13.34 K/uL (4.8-10.8)
[2018-08-08 15:26] LABS: Base Excess VBG -0.1 mEq/L; Oxygen Saturation VBG 69.8 %; pH VBG 7.32 (7.36-7.41)
[2018-08-08 15:30] LABS: Partial Thromboplastin Ratio 0.9; Partial Thromboplastin Time 24.7 Seconds (21.0-31.0); Prothrombin Time 10.1 Seconds (9.0-12.0)
[2018-08-08 15:38] LABS: Alanine Aminotransferase 22 U/L (12-78); Albumin Level 3.7 gm/dl (3.4-5.0); Aspartate Aminotransferase 16 U/L (15-37); BUN Creatinine Ratio 28.9 (10-20); Blood Urea Nitrogen 21 mg/dl (7-18); Calcium 8.9 mg/dl (8.5-10.1); Carbon Dioxide 28 mmol/L (21-32); Chloride 111 mmol/L (98-107); Est GFR (African American) 91.7; Est GFR (Non-African American) 79.1; Glucose 114 mg/dl (70-99); Magnesium 2.6 mg/dl (1.8-2.4); Potassium 4.4 mmol/L (3.5-5.1); Sodium 141 mmol/L (136-145)
--- NOTE | 2018-08-08 15:43 | XRay Report ---
SINGLE VIEW CHEST CLINICAL HISTORY: Dyspnea. FINDINGS: An AP, portable, upright chest radiograph is compared to study dated 06/16/2018 and correlat ed with chest CT dated 02/18/2015. The examination is degraded by portable technique and patient rota tion. The heart is enlarged and there is atherosclerotic calcification of the thoracic aorta. There is pulmonary vascular congestion. The mitral annulus is densely calcified. Bibasilar atelectasis is n oted. No focal airspace consolidation or large pleural effusion is identified. No pneumothorax is see n. The skeletal structures are osteopenic. The bony thorax is grossly intact. IMPRESSION: Cardiomegaly with evidence of mild congestive failure. Electronically signed by: Frankie Noriega M.D. 08/08/2018 3:42 PM
[2018-08-08 15:44] LABS: Albumin Globulin Ratio 1.2 (0.9-2); Alkaline Phosphatase 90 U/L (45-117); Bilirubin,Total 0.7 mg/dl (0.2-1); Globulin 3.1 gm/dl (2.5-4.0); Total Protein 6.8 gm/dl (6.4-8.2); Troponin I < 0.015 ng/ml (0-0.045)
[2018-08-08 16:20] LABS: Basophils # (auto) 0.02 K/uL (0-0.2); Basophils % (auto) 0.1 %; Eosinophils # (auto) 0.16 K/uL (0-0.5); Eosinophils % (auto) 1.2 %; Immature Granulocytes # (auto) 0.08 K/uL (0.00-0.02); Immature Granulocytes % (auto) 0.6 %; Lymphocytes # (auto) 6.51 K/uL (1.2-3.4); Lymphocytes % (auto) 48.8 %; Monocytes % (auto) 6.7 %; Neutrophils # (auto) 5.67 K/uL (1.4-6.5); Neutrophils % (auto) 42.6 %
[2018-08-08] MEDS ORDERED: ALBUT/IPRATROP 3MG/0.5MG NEB 3 ML VIAL NEB STA (16:48)
[2018-08-08] MEDS ORDERED: predniSONE 20 MG TAB PO STA (17:11)
[2018-08-08] MEDS ORDERED: CEFDINIR 300 MG CAP PO STA (17:11)
[2018-08-08] MEDS ORDERED: PANTOprazole 40 MG TAB PO STA (17:11)
[2018-08-08] MEDS ORDERED: OPTIRAY 320 125ml IV PRN (18:19)
--- NOTE | 2018-08-08 18:41 | CT Scan Report ---
CT ANGIOGRAPHY OF THE CHEST, PULMONARY EMBOLUS PROTOCOL CLINICAL HISTORY: Shortness of breath. Evaluate for pulmonary embolus. COMPARISON STUDY: Chest CT February 18, 2015. Chest radiograph August 08, 2018. TECHNIQUE: Following IV administration of 119 mL of Optiray-320, helical axial images of the chest we re obtained utilizing the pulmonary embolus protocol. Maximal intensity projections and sagittal and coronal reformats were viewed on an independent 3D workstation. IV contrast was administered withou t complication. Automated exposure control was utilized for the study. A dose lowering technique wa s utilized adhering to the principles of ALARA. CT DOSE: 851.14 mGy.cm FINDINGS: No pulmonary emboli are identified. There is no evidence of thoracic aortic dissection. Th e heart is mildly enlarged. There is no pericardial effusion. Moderate coronary artery calcification is present. Central airways are patent. There is no pneumothorax or pleural effusion. Linear opacitie s reflect atelectasis. Mosaic attenuation with mild groundglass opacities within the lungs is noted. Bony thorax is unremarkable. Prominent upper abdominal lymph nodes are similar to CT of February 18, 2015. These are partially imaged on this exam. IMPRESSION: 1. No pulmonary emboli identified. 2. Mild groundglass opacities with mosaic attenuation within the lungs which may reflect air trapping . No consolidation. 3. Mild cardiomegaly. Moderate coronary artery calcification. 4. Mild dilatation of the central pulmonary arteries. Electronically signed by: Randell Alfred M.D. 08/08/2018 6:39 PM
--- NOTE | 2018-08-08 20:16 | History & Physical Report ---
Date of Service August 08, 2018 Assessment & Plan (1) Shortness of breath: 82-year-old female was admitted on 08 Aug 2018 complaining of shortness of breath. Shortness of breath: Noted by nursing during her echo earlier this morning. Patient denies right feeling of SOB or any pain. She does admit to forgetting to take her Lasix 40 mg daily for past few days. - On arrival to ED, afebrile, not tachycardic, was tachypneic, with room SpO2 is low as 83%. WBC 13 (similar to recent comparisons). ABG noted pH 7.32, CO2 53, bicarb 27. CTA chest without evidence of PE, positive mild groundglass densities may reflect air trapping, and other findings. TTE earlier today (Ma) noted EF 65 to 70% and mild concentric LVH. EKG is normal sinus rhythm, rate 72. Troponin negative. - In ED, treated with protonix, duoneb, prednisone 60 mg, and started on cefdinir. Follow on room SpO2 92% with mild conversational dyspnea. - Will continue with duonebs overnight, prednisone daily, and start on azithromycin (for anti-inflammatory effect). Give Lasix 40 mg IV x 1 here and restart at home dose for tomorrow. NC oxygen to keep SpO2 > 92%. Ongoing medical issues: - Chronic lymphocytic leukemia: Says she is not on medication for this right now. Routine monitoring as outpatient. - Hypertension: Continue home hydrochlorothiazide, potassium, candesartan, aspirin. - Hypothyroidism: Continue home levothyroxine. - Osteoarthritis, osteoporosis: Continue home alendronate. - Restless leg syndrome: Continue home pramipexole. - Sleep apnea: Denies using CPAP at home. - Prior traumatic wound to right anterior leg: Status post fall in January. Subsequently healed well with wound care. Code status: Discussed with patient, she wishes to be full code (this is apparently different than her DNR on last admission). Diet: Heart healthy. DVT prophy: Lovenox. PT/OT: Ordered. Disbo: Admit to MedSurg. (2) CLL (chronic lymphocytic leukemia): (3) Hypertension: (4) Hypothyroidism: (5) Osteoarthritis: (6) Restless leg syndrome: (7) Sleep apnea: History of Present Illness Primary Care Provider: Gallo Saravia MD 82-year-old female states that she was undergoing a prescheduled echocardiogram earlier on the morning of admission. She says that the nursing staff noticed that she was having some difficulty breathing. The patient herself said she did not feel out of breath but does say that she felt like she may be wheezing. She denies any known underlying pulmonary disease and says she does not use any respiratory medications regularly. She denies any concurrent chest pain, abd ominal pain, feeling of illness, or other acute concerns. However, she does say that she had a very busy week at [facility] and forgot to take her daily Lasix for at least the past 4 days. She says she has gained some weight during this time as well. - In brief record review, she was admitted from June 21- for dyspnea and leg edema, given some Lasix. --- Past medical history includes CLL, hypertension, hypothyroidism, osteoarthritis, osteoporosis, restless leg syndrome, sleep apnea, prior traumatic wound to right vazquez. --- Past surgical history includes tonsillectomy, appendectomy, cataracts, breast lumpectomy, bilateral total knee replacement. --- Social history includes approximately [id number] history of smoking but quit 40 years ago. Denies alcohol use. Resident of [facility] with her . Allergies Allergy/AdvReac Type Severity Reaction Status Date / Time No Known Allergies Allergy Verified 08/08/18 14:51 Home Medications Home Medications Medication Instructions Recorded Confirmed Type alendronate 70 mg tablet 70 mg PO WK tab 02/07/18 08/08/18 History aspirin 81 mg tablet,delayed 81 mg PO DAILY 02/07/18 08/08/18 History release candesartan 4 mg tablet 4 mg PO DAILY tab 02/07/18 08/08/18 History furosemide 40 mg tablet 40 mg PO DAILY 02/07/18 08/08/18 History levothyroxine 25 mcg capsule 25 mcg PO DAILY 02/07/18 08/08/18 History potassium chloride ER 10 mEq 20 meq PO DAILY 02/07/18 08/08/18 History capsule,extended release albuterol sulfate 2 inha INH Q6H PRN #1 ea 08/08/18 Rx cefdinir 300 mg PO BID 7 Days #14 cap 08/08/18 Rx ferrous sulfate 325 mg PO DAILY 08/08/18 08/08/18 History hydrochlorothiazide 12.5 mg PO DAILY 08/08/18 08/08/18 History omeprazole magnesium [Prilosec OTC] 20 mg PO DAILY 28 Days #28 tab 08/08/18 Rx pramipexole 0.5 mg PO BID 08/08/18 08/08/18 History prednisone 40 mg PO DAILY #10 tab 08/08/18 Rx Past Med/Surg History Medical History CLL (chronic lymphocytic leukemia) (Chronic) Edema (Chronic) HTN (hypertension) (Chronic) Hx-daniel malform-heart (Chronic) PATENT TAM OVALE Hypothyroid (Chronic) Osteoarthritis (Chronic) Osteoporosis (Chronic) Restless legs syndrome (Chronic) Sleep apnea (Chronic) Hx of colonic polyp (Resolved) Muscle weakness (Resolved) Surgical History S/P appendectomy (Resolved) S/P bilateral cataract extraction (Resolved) S/P breast lumpectomy (Resolved) S/P knee surgery (Resolved) S/P tonsillectomy (Resolved) Social History Preferred Language: Georgian Communication Ability: Effective Visual Impairment: Limited Hearing Ability: Normal Care Center Manager Required: No Beliefs That Will Affect Care: None marital status: marital status details: DEAN MERAZ Current Living Situation: Spouse Current Living Situation Comment: [facility] current occupational status: retired current occupation: WORKED IN [employer] [place] DURING WORKING HX Other Information That Helps Us Care for You: No Feels Safe at Home: Yes Safety Concerns: Feels Safe At This Time Smoking Status: Former smoker Do You Dip or Chew Tobacco: No Second Hand Exposure: No Tobacco Cessation Education Requested by Patient: No Hx Alcohol Use: Yes Alcohol type: wine Alcohol Intake Frequency Comment: STATED A GLASS OF WINE EVERY MONTH OR SO Hx Substance Use: No during the past year weight has: decreased > 10 lbs Review of Systems Review of Systems: Constitutional: Denies fevers, chills, focal weakness Eyes: Denies any visual loss or diplopia ENT: Denies any ear/nose/throat pain or difficulty speaking or swallowing Respiratory: Positive wheezing. Denies cough or dyspnea. Cardiovascular: Denies any chest pain. Positive bilateral leg edema. Gastrointestinal: Denies any abdominal pain, nausea/vomiting/diarrhea Musculoskeletal: Denies any acute extremity pains, myalgias, or focal weakness Skin: Denies any known acute rashes or lesions Neuro: Denies any headache, acute focal weakness or numbness, or difficulties with speech or swallow. Physical Exam Physical Exam: GENERAL: Awake, alert, well-appearing, in no acute distress. She does have some mild conversational dyspnea. HENT: Normocephalic, atraumatic. Oropharynx unremarkable. EYES: Normal conjunctiva. Sclera non-icteric. NECK: Inspection normal. Supple and full ROM. No nuchal rigidity. CARDIAC: +S1S2 RRR, no murmurs. RESPIRATORY: Mild inspiratory and expiratory wheezing throughout. Mild conversational dyspnea. GI: +BS, soft, non-distended. No tenderness to palpation. No rebound or guarding.. EXTREMITIES: Moving all extremities naturally and easily. Bilateral 12+ edema in both shins. There is a well-healed wound on the right distal anterior vazquez. NEURO: No gross neuro deficits. Results & Data Vital Signs (Past 12 Hours) Vital Signs Temp Pulse Pulse Resp BP BP Pulse Ox 08/08/18 19:49 78 22 170/95 H 91 08/08/18 19:20 93 08/08/18 19:10 97 08/08/18 19:00 97 08/08/18 18:50 84 L 08/08/18 18:41 83 L 08/08/18 18:30 92 08/08/18 18:29 83 L 08/08/18 17:20 78 29 H 91 08/08/18 17:10 83 19 92 08/08/18 17:06 77 22 149/102 H 94 08/08/18 17:00 75 22 97 08/08/18 16:50 78 19 97 08/08/18 16:40 79 15 96 08/08/18 16:30 76 22 95 08/08/18 16:20 76 16 95 08/08/18 16:10 74 31 H 94 08/08/18 16:00 72 17 94 08/08/18 15:50 75 30 H 94 08/08/18 15:40 74 16 96 08/08/18 15:30 77 18 95 08/08/18 15:20 74 23 94 08/08/18 15:10 72 29 H 94 05/07/19 15:08 70 16 94 08/08/18 14:36 89 L 08/08/18 14:33 96 08/08/18 14:23 36.5 C 71 89 H 152/81 H 88 L Laboratory Results 08/08/18 08/08/18 08/08/18 Range/Units 14:56 14:56 14:56 WBC 13.34 H (4.8-10.8) K/uL RBC 4.47 (4.2-5.4) M/uL Hgb 14.3 (12.0-16.0) g/dL Hct 43.6 (37-47) % MCV 97.5 (80-100) fL MCH 32.0 (25-34) pg MCHC 32.8 (32-36) g/dL RDW Std Deviation 47.6 H (36.4-46.3) fL RDW Coeff of Beti 13.4 (11.5-14.5) % Plt Count 148 (130-400) K/uL MPV 9.5 (7.4-10.4) fL Immature Gran % (Auto) 0.6 % Neut % (Auto) 42.6 % Lymph % (Auto) 48.8 % Dickens % (Auto) 6.7 % Eos % (Auto) 1.2 % Baso % (Auto) 0.1 % Immature Gran # (Auto) 0.08 H (0.00-0.02) K/uL Neut # (Auto) 5.67 (1.4-6.5) K/uL Lymph # (Auto) 6.51 H (1.2-3.4) K/uL Dickens # (Auto) 0.90 H (0.11-0.59) K/uL Eos # (Auto) 0.16 (0-0.5) K/uL Baso # (Auto) 0.02 (0-0.2) K/uL PT 10.1 (9.0-12.0) Seconds INR 1.0 (0.9-1.1) APTT 24.7 (21.0-31.0) Seconds PTT Ratio 0.9 VBG pH (7.36-7.41) VBG pCO2 (38-50) mmHg VBG pO2 mmHg VBG HCO3 mmol/L VBG O2 Saturation % VBG Base Excess mEq/L Barometric Pressure mm/Hg Sodium 141 (136-145) mmol/L Potassium 4.4 (3.5-5.1) mmol/L Chloride 111 H (98-107) mmol/L Carbon Dioxide 28 (21-32) mmol/L Anion Gap 2.0 L (3-11) BUN 21 H (7-18) mg/dl Creatinine 0.72 (0.6-1.2) mg/dl Est Cr Clr Drug Dosing Not Reportable Est GFR ( Amer) 91.7 Est GFR (Non-Af Amer) 79.1 BUN/Creatinine Ratio 28.9 H (10-20) Glucose 114 H (70-99) mg/dl Calcium 8.9 (8.5-10.1) mg/dl Magnesium 2.6 H (1.8-2.4) mg/dl Total Bilirubin 0.7 (0.2-1) mg/dl AST 16 (15-37) U/L ALT 22 (12-78) U/L Alkaline Phosphatase 90 (45-117) U/L Troponin I < 0.015 (0-0.045) ng/ml Total Protein 6.8 (6.4-8.2) gm/dl Albumin 3.7 (3.4-5.0) gm/dl Globulin 3.1 (2.5-4.0) gm/dl Albumin/Globulin Ratio 1.2 (0.9-2) 08/08/18 Range/Units 14:56 WBC (4.8-10.8) K/uL RBC (4.2-5.4) M/uL Hgb (12.0-16.0) g/dL Hct (37-47) % MCV (80-100) fL MCH (25-34) pg MCHC (32-36) g/dL RDW Std Deviation (36.4-46.3) fL RDW Coeff of Beti (11.5-14.5) % Plt Count (130-400) K/uL MPV (7.4-10.4) fL Immature Gran % (Auto) % Neut % (Auto) % Lymph % (Auto) % Dickens % (Auto) % Eos % (Auto) % Baso % (Auto) % Immature Gran # (Auto) (0.00-0.02) K/uL Neut # (Auto) (1.4-6.5) K/uL Lymph # (Auto) (1.2-3.4) K/uL Dickens # (Auto) (0.11-0.59) K/uL Eos # (Auto) (0-0.5) K/uL Baso # (Auto) (0-0.2) K/uL PT (9.0-12.0) Seconds INR (0.9-1.1) APTT (21.0-31.0) Seconds PTT Ratio VBG pH 7.32 L (7.36-7.41) VBG pCO2 53 H (38-50) mmHg VBG pO2 37 mmHg VBG HCO3 27 mmol/L VBG O2 Saturation 69.8 % VBG Base Excess -0.1 mEq/L Barometric Pressure 733.7 mm/Hg Sodium (136-145) mmol/L Potassium (3.5-5.1) mmol/L Chloride (98-107) mmol/L Carbon Dioxide (21-32) mmol/L Anion Gap (3-11) BUN (7-18) mg/dl Creatinine (0.6-1.2) mg/dl Est Cr Clr Drug Dosing Est GFR ( Amer) Est GFR (Non-Af Amer) BUN/Creatinine Ratio (10-20) Glucose (70-99) mg/dl Calcium (8.5-10.1) mg/dl Magnesium (1.8-2.4) mg/dl Total Bilirubin (0.2-1) mg/dl AST (15-37) U/L ALT (12-78) U/L Alkaline Phosphatase (45-117) U/L Troponin I (0-0.045) ng/ml Total Protein (6.4-8.2) gm/dl Albumin (3.4-5.0) gm/dl Globulin (2.5-4.0) gm/dl Albumin/Globulin Ratio (0.9-2) Medications Administered Ioversol (Optiray 320 125ml) 119 ml IV ONCE PRN PRN Reason: Interaction Checking Stop: 08/12/18 18:18 Last Admin: 08/08/18 18:20 Dose: 119 ml Documented by: [id number] Discontinued Medications Albuterol (Duoneb) 3 ml NEB NOW STA Stop: 08/08/18 16:49 Last Admin: 08/08/18 16:58 Dose: 3 ml Documented by: [id number] Cefdinir (Omnicef) 600 mg PO ONE STA Stop: 08/08/18 17:12 Last Admin: 08/08/18 17:25 Dose: 600 mg Documented by: [id number] Pantoprazole Sodium (Protonix) 40 mg PO NOW STA Stop: 08/08/18 17:12 Last Admin: 08/08/18 17:32 Dose: 40 mg Documented by: [id number] Prednisone (Prednisone) 60 mg PO NOW STA Stop: 08/08/18 17:12 Last Admin: 08/08/18 17:32 Dose: 60 mg Documented by: [id number] Code Status & VTE Plan Code Status full code VTE Prophylaxis Plan VTE Prophylaxis will be ordered: Yes Supervising Physician Co-Signing Physician Notes Patient seen and examined, chart reviewed, case discussed with Dr. Najera and I agree with his assessment and plan as documented above. Briefly, patient is an 82 yo C female presenting with SOB Patient reports missing Lasix x 4 days. She has no known pulmonary disease. 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 RV systolic pressure 40-50 mHg on echo 07/2017. Echo was performed today which redemonstrated significant shunting as well as increased pulmonary pressures when compared to prior echo, noted to be > 60 mmHg on echo today. Longstanding ASD with increase in pulmonary pressures and SOB ?Eisenmengers? ?symptomatic PH? as etiology of SOB. On exam she is afebrile, hypertensive at 163/102, tachypneic with adequate saturation on 3L General: elderly, non-toxic in appearance, mild conversational dyspnea HEENT: MMM, neck supple, no JVD Heart: +S1/S2, regular, 2/6 JOE at right sternal border Lungs: diminished breath sounds throughout, scattered end-expiratory wheezing Abd: +BS, soft, NT/ND Ext: 1+ edema Labs and images reviewed. Significant for WBC=13.34 which is near baseline. Mild respiratory acidosis with pH=7.32, pCO2=53 on VBG. EKG with new rightward axis deviation Assessment/Plan: ?etiology of SOB - RAD/CHF/PH? -Admit to medical floor -DuoNebs, Prednisone, Azithromycin for possible reactive airway disease -Lasix 40mg IV x 1 dose then resume PO home dose 40mg daily -Consider Cardiology consultation vs outpatient followup -Remainder of plan as above Resident Activity Tracking Resident Involvement: Resident Care Provided Care Provided: Adult [facility] Medicine
[2018-08-08] MEDS ORDERED: ACETAMINOPHEN 325 MG TAB PO PRN (21:36)
[2018-08-08] MEDS ORDERED: FUROSEMIDE 40 MG in SYRINGE 0 ML IV ONE (21:45)
[2018-08-08] MEDS: ALBUT/IPRATROP 3MG/0.5MG NEB 3 ML VIAL NEB SCH (21:55)
[2018-08-08] MEDS ORDERED: ENOXAPARIN INJ 40 MG/0.4 ML SYR SQ SCH (22:00)
[2018-08-08] MEDS: PRAMIPEXOLE DIHYDROCHLO 0.5 MG TAB PO SCH (22:31)
[2018-08-08 22:54] LABS: Appearance Urine Clear (Clear); Bilirubin Urine Negative (Negative); Blood Urine 1+ (Negative); Color Urine Yellow; Glucose Urine UA Negative (Negative); Ketones Urine 1+ (Negative); Leukocyte Esterase Urine Negative (Negative); Nitrite Urine Negative (Negative); Protein Urine Negative (Negative); Specific Gravity Urine 1.015 (1.000-1.030); Urobilinogen Urine Negative (Negative)
[2018-08-08 23:10] LABS: Bacteria Urine Negative (Negative); RBC Urine 0-4 /hpf (0-4); Uric Acid Crystals Urine Present (None Prsent); WBC Urine 0-5 /hpf (0-5)
[2018-08-09] MEDS: ALBUT/IPRATROP 3MG/0.5MG NEB 3 ML VIAL NEB SCH ×3 (01:36→14:02)
[2018-08-09] MEDS ORDERED: LEVOTHYROXINE SODIUM 25 MCG TABLET PO SCH (06:30)
[2018-08-09] MEDS ORDERED: ALENDRONATE SODIUM 70 MG TAB PO SCH (06:30)
[2018-08-09] MEDS: PRAMIPEXOLE DIHYDROCHLO 0.5 MG TAB PO SCH (08:01)
[2018-08-09] MEDS ORDERED: FERROUS SULFATE 325 MG TAB PO SCH (09:00)
[2018-08-09] MEDS ORDERED: POTASSIUM CHLORIDE 10 MEQ TABCR PO SCH (09:00)
[2018-08-09] MEDS ORDERED: FUROSEMIDE 40 MG TAB PO SCH (09:00)
[2018-08-09] MEDS ORDERED: predniSONE 20 MG TAB PO SCH (09:00)
[2018-08-09] MEDS ORDERED: ASPIRIN 81 MG ECTAB PO SCH (09:00)
[2018-08-09] MEDS ORDERED: AZITHROMYCIN 250 MG TAB PO SCH (09:00)
[2018-08-09] MEDS ORDERED: hydroCHLOROthiazide 25 MG TAB PO SCH (09:00)
[2018-08-09 09:50] LABS: Hematocrit (blood only) 42.6 % (37-47); Mean Corpuscular Hgb Conc 32.9 g/dL (32-36); Mean Corpuscular Volume 97.3 fL (80-100); Mean Platelet Volume 9.5 fL (7.4-10.4); Platelet Count 169 K/uL (130-400); RDW Coefficient of Variation 13.4 % (11.5-14.5); RDW Standard Deviation 47.5 fL (36.4-46.3); Red Blood Count 4.38 M/uL (4.2-5.4); White Blood Count 17.49 K/uL (4.8-10.8)
[2018-08-09 10:29] LABS: BUN Creatinine Ratio 22.6 (10-20); Calcium 9.1 mg/dl (8.5-10.1); Creatinine Clr Calc Pharmacy 45.2 ml/min; Est GFR (African American) 56.8; Potassium 3.9 mmol/L (3.5-5.1)
[2018-08-09 11:56] LABS: Basophils # (auto) 0.02 K/uL (0-0.2); Basophils % (auto) 0.1 %; Immature Granulocytes # (auto) 0.12 K/uL (0.00-0.02); Immature Granulocytes % (auto) 0.7 %; Lymphocytes # (auto) 7.77 K/uL (1.2-3.4); Lymphocytes % (auto) 44.4 %; Monocytes # (auto) 0.91 K/uL (0.11-0.59); Monocytes % (auto) 5.2 %; Neutrophils # (auto) 8.67 K/uL (1.4-6.5); Neutrophils % (auto) 49.6 %; Smudge Cells Present
--- NOTE | 2018-08-09 14:04 | Discharge Summary ---
Date of Service August 09, 2018 Admission HPI Per Admitting Provider 82-year-old female states that she was undergoing a prescheduled echocardiogram earlier on the morning of admission. She says that the nursing staff noticed that she was having some difficulty breathing. The patient herself said she did not feel out of breath but does say that she felt like she may be wheezing. She denies any known underlying pulmonary disease and says she does not use any respiratory medications regularly. She denies any concurrent chest pain, abdominal pain, feeling of illness, or other acute concerns. However, she does say that she had a very busy week at [facility] and forgot to take her daily Lasix for at least the past 4 days. She says she has gained some weight during this time as well. - In brief record review, she was admitted from June 21- for dyspnea and leg edema, given some Lasix. --- Past medical history includes CLL, hypertension, hypothyroidism, osteoarthritis, osteoporosis, restless leg syndrome, sleep apnea, prior traumatic wound to right vazquez. --- Past surgical history includes tonsillectomy, appendectomy, cataracts, breast lumpectomy, bilateral total knee replacement. --- Social history includes approximately [id number] history of smoking but quit 40 years ago. Denies alcohol use. Resident of [facility] with her . Principal Diagnosis Acute hypoxic hypercapnic respiratory failure Discharge Exam Constitutional WD/WN, vitals as above + morbidly obese and + edematous; + uncooperative Eyes PERRL, conjunctivae normal, anicteric sclerae ENMT external ear and nose normal, oropharynx normal Neck normal visual inspection and + thick neck Respiratory + labored breathing, + uses accessory muscles, able to speak in complete sentences and + tripod positioning; no nasal flaring, no pursed lip breathing and no stridor Auscultation: + crackles (bibasilar) Cardiovascular Rate/Rhythm: regular rate and regular rhythm Extremities: + edema Gastrointestinal (Abdomen) normal bowel sounds, soft, nontender, no hepatosplenomegaly Musculoskeletal no cyanosis or clubbing, extremities motor strength 5/5 Skin + wound (well-healed on anterior R vazquez) Neurologic CN's II-XI intact bilaterally and awake Psychiatric A+Ox3, euthymic affect Discharge Data Allergies Allergy/AdvReac Type Severity Reaction Status Date / Time No Known Allergies Allergy Verified 08/08/18 14:51 Consultations 08/08/18 18:48 ED Decision to Admit Stat 08/09/18 13:52 Consult FRANDYG veterinary technology instructor Routine Ordered Studies 08/08/18 17:47 CT angio chest PE protocol Stat Hospital Course (1) Shortness of breath: 82-year-old female was send from Echo lab for being short of breath and admitted on 08 Aug 2018 for acute hypoxic hypercapnic respiratory failure Noted by nursing during her echo prior to arrival. Patient denied feeling SOB and stated this is how she breathes all the time. - On arrival to ED, afebrile, not tachycardic, was tachypneic, with room SpO2 is low as 83%. WBC 13 (similar to recent comparisons). ABG noted pH 7.32, CO2 53, bicarb 27. CTA chest without evidence of PE, positive mild groundglass densities may reflect air trapping, and other findings. Acute Hypoxic Hypercapnic Respiratory failure - Secondary to Acute bronchitis with worsening ? right heart function. - Kept on NC oxygen. - Follow on room SpO2 92% with mild conversational dyspnea. Acute Bronchitis - In ED, treated with protonix, duoneb, prednisone 60 mg, and started on cefdinir. - Home on prednisone and cefdinir. Right heart dysfunction and pulmonary HTN Likely OHS and Moderate TR - She does admit to forgetting to take her Lasix 40 mg daily for past few days. - States she takes lasix for unilateral leg swelling but prior documentation indicates it was given for both bilateral edema and dyspnea. - Normal EF and mild concentric LVH on Echo from Aug 08 2018. - Troponin negative. - Should be evaluated as outpatient to arrange bipap. Patient has regular echos to follow ASD secundum type. Ongoing medical issues: - Morbid Obesity - Likely with OHS. Discussed arrangement of bipap as outpatient by PCP. - Sleep apnea: Patient states she had sleep study and was told she did NOT have this and did NOT require CPAP - Chronic lymphocytic leukemia: Says she is not on medication for this right now. Routine monitoring as outpatient. - Hypertension: Continue home hydrochlorothiazide, potassium, candesartan, aspirin. - Hypothyroidism: Continue home levothyroxine. - Osteoarthritis, osteoporosis: Continue home alendronate. - Restless leg syndrome: Continue home pramipexole. - Prior traumatic wound to right anterior leg: Status post fall in January. Subsequently healed well with wound care. Code status: Was kept full code as per patient wishes. (2) CLL (chronic lymphocytic leukemia): (3) Hypertension: (4) Hypothyroidism: (5) Osteoarthritis: (6) Restless leg syndrome: (7) Sleep apnea: Total Time Total Time Spent Total Time Spent (In Minutes): >30 Discharge Plan Discharge Items Patient Disposition: Home - Self-Care Reason For Visit: SOB Discharge Diagnosis: hypoxic hypercapnic respiratory failure Condition: Fair Discharge Goals: Improve function, Increase independence, Learn about illness and Therapeutic intervention Activity: Per 'Additional Instructions' section Non-emergency contact: Primary Care Provider Call non-emergency contact if: you have any medication questions and your symptoms worsen Follow-up/Referrals: Gallo Saravia MD [Primary Care Provider] - Diet: Heart Healthy Addtl Provider Instructions: During this visit you were evaluated for hypoxia an increased work of breathing. You will NOT be going home on oxygen, but this may be something that will be required in the future. We recommend you see Dr. Saravia at [facility] within 1 week of returning home. He can discuss further testing and evaluation to help you with your breathing. We recommend you follow up with a high school biology teacher, who may recommend you wear a breathing mask at night to help you breathe more easily. Take all of your home medications as prescribed, even if it is late at night and you remember before you go to bed. Prescriptions: New albuterol sulfate 90 mcg/actuation aerosol powdr breath activated 2 inha INH Q6H PRN (Reason: shortness of breath or wheezing) Qty: 1 RF: 0 Continued furosemide [Lasix] 40 mg tablet 40 mg PO DAILY RF: 0 candesartan 4 mg tablet 4 mg PO DAILY RF: 0 aspirin [Adult Aspirin Regimen] 81 mg tablet,delayed release (DR/EC) 81 mg PO DAILY RF: 0 potassium chloride 10 mEq capsule, extended release 20 meq PO DAILY RF: 0 alendronate 70 mg tablet 70 mg PO WK RF: 0 levothyroxine 25 mcg capsule 25 mcg PO DAILY RF: 0 pramipexole 0.5 mg Tablet 0.5 mg PO BID RF: 0 hydrochlorothiazide 12.5 mg Capsule 12.5 mg PO DAILY RF: 0 Discontinued ferrous sulfate 325 mg (65 mg iron) Tablet 325 mg PO DAILY RF: 0 Stand-Alone Forms: [facility] Discharge Orders: Discharge Order (Routine); Ordered 08/09/18 Ordered By: Cande Natarajan Admission Data Admit Date/Time: 08/08/18 20:12 Attending Provider: Suzanne Cruz Admit Provider: Nam Najera Primary Care Provider: Gallo Saravia Other Providers: Benjamin Dominguez ; Alma Delia Lentz Service: Medical Other Interventions: Discharge Summary Assessment (RN) Last Done: 08/09/18 14:04 DC Date/Time DO NOT enter until pt leaves facility: 08/09/18 14:41 Supervising Physician Co-Signing Physician Notes Resident Physician Supervision Note: I independently interviewed and examined the patient and verified the dhaliwal history and physical, reviewed labs and image studies, discussed the case with the resident Dr. Natarajan and agree with the findings and care plan. Time spent in discharge 35 min Resident Activity Tracking Resident Involvement: Resident Care Provided Care Provided: Adult Hospital Medicine
== END 2018-08-09 14:41 | disposition home or self-care (01) | DRG 189 ==
LOC: ED 14:21 → 4E 20:12 → SUATTDRO 20:12 → 4E 21:06

== ENCOUNTER 2020-12-04 12:55 | Observation (INO) ==
[2020-12-04] MEDS ORDERED: METOPROLOL TARTRATE 1 MG/ML VIAL IV STA (14:13)
--- NOTE | 2020-12-04 14:18 | Emergency Department Note ---
Impression & Plan Tachycardia, Atrial flutter, TOMAS (acute kidney injury), Edema ED Provider Note NAME: RAHEEM WEN AGE: 84 SEX: F : 1935 ARRIVES VIA: Ambulance INFORMANT: [Patient][ems] ED PROVIDER(S): [Frankie Tony MD] CHIEF COMPLAINT: Tachycardia HISTORY OF PRESENT ILLNESS: The patient is an 84-year-old female presents to the ER for what sounds like tachycardia. The patient currently has no complaints and cannot say why she is actually in the ED. As per the notes from EMS, the patient was diagnosed with a flutter. They have been adjusting meds for a week or so. She is on metoprolol, digoxin and Eliquis. This a.m., the blood pressure appeared to be somewhat low so they held her metoprolol. Now her heart rate is quicker and she was sent to the ED. The patient is not short of breath. She has no chest pain. She has no current complaints or concerns. She does wear oxygen at baseline, 2 L. This is for COPD. She is a DNR. She has chronic lower extremity edema and is on diuretics daily. REVIEW OF SYSTEMS: See HPI for pertinent positives and negatives. A total of ten systems were reviewed and were otherwise negative. PMHx/PSHx: See Below SOCIAL HISTORY: See Below. PHYSICAL EXAM: GENERAL: Patient is in no acute distress. HEENT: No acute trauma, normocephalic atraumatic, mucous membranes moist, no nasal congestion, no scleral icterus. NECK: No stridor, no adenopathy, no meningismus, trachea is midline. LUNGS: Decreased breath sounds bilaterally, I hear no wheezing or crackles. No respiratory distress. HEART: Mildly tachycardic, irregular rhythm, no obvious murmur. ABDOMEN: Soft, nontender, bowel sounds positive, no hernias, no peritonitis. EXTREMITIES: No cyanosis, significant bilateral pedal edema, full range of motion of all the joints without pain or difficulty, no signs for acute trauma. NEUROLOGIC: Oriented x 3, no acute motor or sensory deficits, no focal weakness. SKIN: No rash, no jaundice, no diaphoresis. DIFFERENTIAL DIAGNOSIS: Infection, dehydration, metabolic abnormality, hypo/hyperglycemia, a flutter, A. fib, SVT, dysrhythmia, COVID-19, electrolyte disturbance, anemia, hypoxia, cardiac sources, intracerebral event, toxicologic issues, stroke, TIA, as well as other pathologies. EMERGENCY DEPARTMENT COURSE/PROCEDURES: ECG: Indication was tachycardia. The ECG shows atrial flutter with a variable block. The rate is around 92. There is no ST elevation, no PVCs. The QTc is 447. Some nonspecific ST change was noted. Continuous Cardiac Monitoring: An order was placed for continuous cardiac monitoring. The monitor shows a rate of 102 with atrial flutter. Critical Care Note: I have personally spent 49 minutes of critical care time in the direct management of this patient. This includes bedside care, interpretation of diagnostic studies, and testing, discussion with consultants, patient, and family members, and other required patient management activities. This 49 minutes is in excess of all separately billable procedures. MEDICAL DECISION MAKING: There is a mild leukocytosis. The patient has a history of an elevated white blood cell count chronically. There was a normal hemoglobin and platelet count. No coagulopathy. Renal panel testing showed some acute kidney injury on top of her chronic renal insufficiency. No significant electrolyte abnormality requiring emergent correction. No concerning liver enzyme elevation. The patient appeared to be in a euthyroid state. ECG showed atrial flutter with a variable block, no acute ischemic change. Cardiac enzyme testing x1 is not consistent with acute cardiac injury. Urinalysis does not show evidence for infection. Covid testing was negative. Digoxin level was low normal at 1. Chest film did not show pneumonia or CHF. On exam, the patient had significant pedal edema. The patient presents with a rapid atrial flutter. They are having a difficult time controlling her heart rate without dropping her blood pressure. They have been working on rate control for over a week. Today, her blood pressure was somewhat low and she was sent to the ED. I discussed the case with cardiology. Given the difficulty controlling the heart rate, given the concerns for hypotension, a hospital stay and medication adjustment was suggested. I spoke to the patient, I talked with the outpatient case manager. The on-call hospitalist was consulted. During the patient's ED stay. She was given 2 mg of IV Bumex. She was given 5 mg of IV Lopressor. She received 125 mcg of IV digoxin. She is currently resting comfortably. Past Med/Surg History Medical History (Updated 12/04/20 @ 22:16 by Frankie Tony MD) CLL (chronic lymphocytic leukemia) Edema HTN (hypertension) Hx of colonic polyp Hx-daniel malform-heart PATENT TAM OVALE Hypothyroid Muscle weakness Osteoarthritis Osteoporosis Restless legs syndrome Sleep apnea Surgical History S/P appendectomy S/P bilateral cataract extraction S/P breast lumpectomy S/P knee surgery S/P tonsillectomy Family History Other Diabetes Social History Smoking Status: Former smoker Second Hand Exposure: No; Hx Alcohol Use: Yes Alcohol type: wine Alcohol Intake Frequency Comment: STATED A GLASS OF WINE EVERY MONTH OR SO Hx Substance Use: No Preferred Language: Iraqi Communication Ability: Effective Visual Impairment: Limited Hearing Ability: Normal Children'S Tutor Nursery Required: No Beliefs That Will Affect Care: None marital status: marital status details: DEAN MERAZ Current Living Situation: Spouse Current Living Situation Comment: [place] current occupational status: retired current occupation: WORKED IN [employer] ON FEET A LOT DURING WORKING HX Other Information That Helps Us Care for You: No Feels Safe at Home: Yes during the past year weight has: decreased > 10 lbs Assistive Devices: Glasses, Oxygen - Continuous and Walker Allergies Allergies Allergy/AdvReac Type Severity Reaction Status Date / Time Iodinated Contrast Media Allergy Unknown As Per Unverified 12/04/20 13:59 [facility] tramadol Allergy Unknown As Per Unverified 12/04/20 13:59 [facility] Home Meds Home Medications Medication Instructions Recorded Confirmed alendronate 70 mg tablet 70 mg PO WK tab 02/07/18 12/04/20 levothyroxine 25 mcg capsule 25 mcg PO QAM 02/07/18 12/04/20 pramipexole 0.5 mg tablet 0.5 mg PO BID 08/08/18 12/04/20 acetaminophen 325 mg capsule 325 mg PO QID PRN 12/03/20 12/04/20 (Tylenol) apixaban 2.5 mg tablet (Eliquis) 2.5 mg PO BID 12/03/20 12/04/20 bumetanide 1 mg tablet 3 mg PO QAM tab 12/03/20 12/04/20 cholecalciferol (vitamin D3) 50 50 mcg PO QAM 12/03/20 12/04/20 mcg (2,000 unit) capsule colloidal oatmeal 1 % topical 1 applic TOPICAL BID PRN 12/03/20 12/04/20 cream (Eucerin Eczema Relief) metoprolol succinate 100 mg 100 mg PO BID 12/03/20 12/04/20 tablet,extended release 24 hr mupirocin 2 % topical ointment 1 applic TOPICAL PM 12/03/20 12/04/20 prenat.vits,radha,cim-qmtd-giyem 1 tab PO QAM 12/03/20 12/04/20 spironolactone 50 mg tablet 75 mg PO BID tab 12/03/20 12/04/20 digoxin 250 mcg (0.25 mg) tablet 250 mcg PO QAM 12/04/20 12/04/20 Results & Data (ED) Vital Signs Vital Signs - 24 hr 12/04/20 13:05 12/04/20 13:30 12/04/20 14:30 Temperature 36.8 C Temperature Source Oral Pulse Rate 102 H 119 H 118 H Pulse Rate from SpO2 Sensor 118 H Pulse Rhythm Irregular Pulse Strength Normal Respiratory Rate 25 H 20 17 Respiratory Effort / Characteristics Non-Labored Spontaneous Respiratory Depth Shallow Respiratory Pattern Tachypnea Blood Pressure 103/68 101/74 Blood Pressure Mean 79 83 Blood Pressure Position Lying Pulse Oximetry 96 100 Oxygen Delivery Method Nasal Cannula Oxygen Flow Rate 2 Sepsis Recent Fever Within 48 Hours No Sepsis New/Unexplained Change in Mental Status N/A Sepsis Action Taken by Nursing No Action Required 12/04/20 15:05 12/04/20 15:30 12/04/20 15:45 Temperature Temperature Source Pulse Rate 117 H 119 H 89 Pulse Rate from SpO2 Sensor 119 H 105 H Pulse Rhythm Pulse Strength Respiratory Rate 23 25 H Respiratory Effort / Characteristics Respiratory Depth Respiratory Pattern Blood Pressure 117/87 105/73 110/88 Blood Pressure Mean 83 95 Blood Pressure Position Pulse Oximetry 100 99 Oxygen Delivery Method Oxygen Flow Rate Sepsis Recent Fever Within 48 Hours Sepsis New/Unexplained Change in Mental Status Sepsis Action Taken by Nursing 12/04/20 16:00 12/04/20 16:15 12/04/20 16:30 Temperature Temperature Source Pulse Rate 119 H 118 H 113 H Pulse Rate from SpO2 Sensor 119 H 119 H 111 H Pulse Rhythm Pulse Strength Respiratory Rate 17 21 19 Respiratory Effort / Characteristics Respiratory Depth Respiratory Pattern Blood Pressure 106/70 106/79 91/65 L Blood Pressure Mean 82 88 73 Blood Pressure Position Pulse Oximetry 100 98 99 Oxygen Delivery Method Nasal Cannula Oxygen Flow Rate 2 Sepsis Recent Fever Within 48 Hours Sepsis New/Unexplained Change in Mental Status Sepsis Action Taken by Nursing 12/04/20 16:47 12/04/20 17:00 12/04/20 17:12 Temperature Temperature Source Pulse Rate 119 H 128 H 119 H Pulse Rate from SpO2 Sensor 122 H 115 H 119 H Pulse Rhythm Pulse Strength Respiratory Rate 18 21 31 H Respiratory Effort / Characteristics Respiratory Depth Respiratory Pattern Blood Pressure 101/71 Blood Pressure Mean 81 Blood Pressure Position Pulse Oximetry 100 97 98 Oxygen Delivery Method Nasal Cannula Nasal Cannula Nasal Cannula Oxygen Flow Rate 2 2 2 Sepsis Recent Fever Within 48 Hours Sepsis New/Unexplained Change in Mental Status Sepsis Action Taken by Nursing 12/04/20 17:30 12/04/20 18:00 Temperature Temperature Source Pulse Rate 118 H 118 H Pulse Rate from SpO2 Sensor 119 H 118 H Pulse Rhythm Pulse Strength Respiratory Rate 22 22 Respiratory Effort / Characteristics Respiratory Depth Respiratory Pattern Blood Pressure 105/63 92/49 L Blood Pressure Mean 77 63 Blood Pressure Position Pulse Oximetry 98 100 Oxygen Delivery Method Nasal Cannula Nasal Cannula Oxygen Flow Rate 2 2 Sepsis Recent Fever Within 48 Hours Sepsis New/Unexplained Change in Mental Status Sepsis Action Taken by Correction Medications Current Medication List: was personally reviewed by me Laboratory Data Attestation: I reviewed the patient's lab results. Result diagrams: 12/04/20 14:56 12/04/20 14:56 Lab Results 12/04/20 12/04/20 12/04/20 Range/Units 14:56 14:56 14:56 WBC 14.18 H (4.8-10.8) K/uL RBC 4.32 (4.2-5.4) M/uL Hgb 14.6 (12.0-16.0) g/dL Hct 43.5 (37-47) % MCV 100.7 H (80-100) fL MCH 33.8 (25-34) pg MCHC 33.6 (32-36) g/dL RDW Std Deviation 51.7 H (36.4-46.3) fL RDW Coeff of Beti 14.1 (11.5-14.5) % Plt Count 193 (130-400) K/uL MPV 9.3 (7.4-10.4) fL Neutrophils % (Manual) 40.9 % Lymphocytes % (Manual) 42.6 % Reactive Lymphs % (Man) 8.7 % Monocytes % (Manual) 7.8 % Neutrophils # (Manual) 5.80 (1.4-6.5) K/uL Total Absolute Neuts 5.80 (1.4-6.5) K/uL Lymphocytes # (Manual) 6.04 H (1.2-3.4) K/uL Reactive Lymphs # 1.23 K/uL Total Abs Lymphocytes 7.27 H (1.2-3.4) K/uL Monocytes # (Manual) 1.11 H (0.11-0.59) K/uL Polychromasia 1+ PT 10.5 (9.0-12.0) Seconds INR 1.0 (0.9-1.1) APTT 25.1 (21.0-31.0) Seconds PTT Ratio 1.0 Sodium 136 (136-145) mmol/L Potassium 4.3 (3.5-5.1) mmol/L Chloride 97 L (98-107) mmol/L Carbon Dioxide 32 (21-32) mmol/L Anion Gap 7.0 (3-11) BUN 47 H (7-18) mg/dl Creatinine 1.94 H (0.6-1.2) mg/dl Est Cr Clr Drug Dosing 25.5 ml/min Est GFR ( Amer) 27.3 ml/min Est GFR (Non-Af Amer) 23.5 ml/min BUN/Creatinine Ratio 24.1 H (10-20) Glucose 98 (70-99) mg/dl Calcium 11.1 H (8.5-10.1) mg/dl Magnesium 2.2 (1.8-2.4) mg/dl Total Bilirubin 1.2 H (0.2-1) mg/dl AST 27 (15-37) U/L ALT 37 (12-78) U/L Alkaline Phosphatase 78 (45-117) U/L Troponin I < 0.015 (0-0.045) ng/ml Total Protein 7.1 (6.4-8.2) gm/dl Albumin 3.9 (3.4-5.0) gm/dl Globulin 3.2 (2.5-4.0) gm/dl Albumin/Globulin Ratio 1.2 (0.9-2) TSH 3.760 (0.300-4.500) uIu/ml Urine Color Urine Appearance (Clear) Urine pH (4.5-7.5) Ur Specific [place] (1.000-1.030) Urine Protein (Negative) Urine Glucose (UA) (Negative) Urine Ketones (Negative) Urine Blood (Negative) Urine Nitrite (Negative) Urine Bilirubin (Negative) Urine Urobilinogen (Negative) Ur Leukocyte Esterase (Negative) Urine WBC (Auto) (0-5) /hpf Urine RBC (Auto) (0-4) /hpf U Hyaline Cast (Auto) (0-5) /lpf U Epithel Cells (Auto) (0-5) /lpf Urine Bacteria (Auto) (Negative) Digoxin (0.8-2.0) ng/ml COVID-19 Eval Order SARS-CoV-2 (PCR) (Negative) 12/04/20 12/04/20 12/04/20 Range/Units 14:56 16:37 17:06 WBC (4.8-10.8) K/uL RBC (4.2-5.4) M/uL Hgb (12.0-16.0) g/dL Hct (37-47) % MCV (80-100) fL MCH (25-34) pg MCHC (32-36) g/dL RDW Std Deviation (36.4-46.3) fL RDW Coeff of Beti (11.5-14.5) % Plt Count (130-400) K/uL MPV (7.4-10.4) fL Neutrophils % (Manual) % Lymphocytes % (Manual) % Reactive Lymphs % (Man) % Monocytes % (Manual) % Neutrophils # (Manual) (1.4-6.5) K/uL Total Absolute Neuts (1.4-6.5) K/uL Lymphocytes # (Manual) (1.2-3.4) K/uL Reactive Lymphs # K/uL Total Abs Lymphocytes (1.2-3.4) K/uL Monocytes # (Manual) (0.11-0.59) K/uL Polychromasia PT (9.0-12.0) Seconds INR (0.9-1.1) APTT (21.0-31.0) Seconds PTT Ratio Sodium (136-145) mmol/L Potassium (3.5-5.1) mmol/L Chloride (98-107) mmol/L Carbon Dioxide (21-32) mmol/L Anion Gap (3-11) BUN (7-18) mg/dl Creatinine (0.6-1.2) mg/dl Est Cr Clr Drug Dosing ml/min Est GFR ( Amer) ml/min Est GFR (Non-Af Amer) ml/min BUN/Creatinine Ratio (10-20) Glucose (70-99) mg/dl Calcium (8.5-10.1) mg/dl Magnesium (1.8-2.4) mg/dl Total Bilirubin (0.2-1) mg/dl AST (15-37) U/L ALT (12-78) U/L Alkaline Phosphatase (45-117) U/L Troponin I (0-0.045) ng/ml Total Protein (6.4-8.2) gm/dl Albumin (3.4-5.0) gm/dl Globulin (2.5-4.0) gm/dl Albumin/Globulin Ratio (0.9-2) TSH (0.300-4.500) uIu/ml Urine Color Yellow Urine Appearance Clear (Clear) Urine pH 6.0 (4.5-7.5) Ur Specific [place] 1.011 (1.000-1.030) Urine Protein Negative (Negative) Urine Glucose (UA) Negative (Negative) Urine Ketones Negative (Negative) Urine Blood 1+ H (Negative) Urine Nitrite Negative (Negative) Urine Bilirubin Negative (Negative) Urine Urobilinogen Negative (Negative) Ur Leukocyte Esterase Trace H (Negative) Urine WBC (Auto) 1-5 (0-5) /hpf Urine RBC (Auto) 0-4 (0-4) /hpf U Hyaline Cast (Auto) 1-5 (0-5) /lpf U Epithel Cells (Auto) >30 H (0-5) /lpf Urine Bacteria (Auto) 2+ H (Negative) Digoxin 1.0 (0.8-2.0) ng/ml COVID-19 Eval Order Covid19 at [facility] SARS-CoV-2 (PCR) (Negative) 12/04/20 Range/Units 17:06 WBC (4.8-10.8) K/uL RBC (4.2-5.4) M/uL Hgb (12.0-16.0) g/dL Hct (37-47) % MCV (80-100) fL MCH (25-34) pg MCHC (32-36) g/dL RDW Std Deviation (36.4-46.3) fL RDW Coeff of Beti (11.5-14.5) % Plt Count (130-400) K/uL MPV (7.4-10.4) fL Neutrophils % (Manual) % Lymphocytes % (Manual) % Reactive Lymphs % (Man) % Monocytes % (Manual) % Neutrophils # (Manual) (1.4-6.5) K/uL Total Absolute Neuts (1.4-6.5) K/uL Lymphocytes # (Manual) (1.2-3.4) K/uL Reactive Lymphs # K/uL Total Abs Lymphocytes (1.2-3.4) K/uL Monocytes # (Manual) (0.11-0.59) K/uL Polychromasia PT (9.0-12.0) Seconds INR (0.9-1.1) APTT (21.0-31.0) Seconds PTT Ratio Sodium (136-145) mmol/L Potassium (3.5-5.1) mmol/L Chloride (98-107) mmol/L Carbon Dioxide (21-32) mmol/L Anion Gap (3-11) BUN (7-18) mg/dl Creatinine (0.6-1.2) mg/dl Est Cr Clr Drug Dosing ml/min Est GFR ( Amer) ml/min Est GFR (Non-Af Amer) ml/min BUN/Creatinine Ratio (10-20) Glucose (70-99) mg/dl Calcium (8.5-10.1) mg/dl Magnesium (1.8-2.4) mg/dl Total Bilirubin (0.2-1) mg/dl AST (15-37) U/L ALT (12-78) U/L Alkaline Phosphatase (45-117) U/L Troponin I (0-0.045) ng/ml Total Protein (6.4-8.2) gm/dl Albumin (3.4-5.0) gm/dl Globulin (2.5-4.0) gm/dl Albumin/Globulin Ratio (0.9-2) TSH (0.300-4.500) uIu/ml Urine Color Urine Appearance (Clear) Urine pH (4.5-7.5) Ur Specific [place] (1.000-1.030) Urine Protein (Negative) Urine Glucose (UA) (Negative) Urine Ketones (Negative) Urine Blood (Negative) Urine Nitrite (Negative) Urine Bilirubin (Negative) Urine Urobilinogen (Negative) Ur Leukocyte Esterase (Negative) Urine WBC (Auto) (0-5) /hpf Urine RBC (Auto) (0-4) /hpf U Hyaline Cast (Auto) (0-5) /lpf U Epithel Cells (Auto) (0-5) /lpf Urine Bacteria (Auto) (Negative) Digoxin (0.8-2.0) ng/ml COVID-19 Eval Order SARS-CoV-2 (PCR) NEGATIVE (Negative) Administered Medications Apixaban (Apixaban 2.5 Mg Tab) 2.5 mg PO BID LA Stop: 01/03/21 20:59 Last Admin: 12/04/20 21:24 Dose: 2.5 mg Documented by: [id number] Metoprolol Succinate (Metoprolol Succ 50mg Ext Rel Tab) 100 mg PO BID LA Stop: 01/03/21 20:59 Last Admin: 12/04/20 21:25 Dose: 100 mg Documented by: [id number] Pramipexole Dihydrochloride (Pramipexole Dihydrochlo 0.5 Mg Tab) 0.5 mg PO BID LA Stop: 01/03/21 20:59 Last Admin: 12/04/20 21:24 Dose: 0.5 mg Documented by: [id number] Discontinued Medications Bumetanide 2 mg/ Syringe 8 mls @ 4 mls/min IV ONE ONE Stop: 12/04/20 17:09 Last Admin: 12/04/20 18:09 Dose: 4 mls/min Documented by: [id number] Digoxin 125 mcg/ Syringe 10 mls @ 2 mls/min IV NOW ONE Stop: 12/04/20 17:34 Last Admin: 12/04/20 18:10 Dose: 2 mls/min Documented by: [id number] Metoprolol Tartrate (Metoprolol Tartrate 1 Mg/Ml Vial) 5 mg IV NOW STA Stop: 12/04/20 14:14 Last Admin: 12/04/20 15:05 Dose: 5 mg Documented by: [id number] Imaging Data Radiologist's Impression: Chest X-Ray 12/04/20 14:13 XR chest 1V portable HISTORY: weakness COMPARISON: Chest 08/08/2018. FINDINGS: The heart remains mildly enlarged. No new focal lung consolidations to suggest pneumonia. No evidence for pulmonary edema. No pleural effusions. No pneumothorax. Stable bilateral hilar prominence likely due to the enlarged pulmonary arteries. IMPRESSION: No significant change compared to the prior study. No acute process. ACT 112: Negative or not required by law. Electronically signed by: Jonathon Nelson M.D. 12/04/2020 2:53 PM Discharge Plan Visit Data Chief Complaint: Tachycardia Stated Complaint: tachycardic ED Provider: Frankie Tony Discharge Problem: Tachycardia, Atrial flutter, TOMAS (acute kidney injury), Edema Patient Disposition: Admitted As Inpatient Condition: Fair Discharge Instructions Interventions: ED Discharge Assessment Last Done: 12/04/20 19:01
--- NOTE | 2020-12-04 14:54 | XRay Report ---
XR chest 1V portable HISTORY: weakness COMPARISON: Chest 08/08/2018. FINDINGS: The heart remains mildly enlarged. No new focal lung consolidations to suggest pneumonia. N o evidence for pulmonary edema. No pleural effusions. No pneumothorax. Stable bilateral hilar promine nce likely due to the enlarged pulmonary arteries. IMPRESSION: No significant change compared to the prior study. No acute process. ACT 112: Negative or not required by law. Electronically signed by: Jonathon Nelson M.D. 12/04/2020 2:53 PM
[2020-12-04 15:11] LABS: Hematocrit (blood only) 43.5 % (37-47); Hemoglobin 14.6 g/dL (12.0-16.0); Mean Corpuscular Hemoglobin 33.8 pg (25-34); Mean Corpuscular Hgb Conc 33.6 g/dL (32-36); Mean Corpuscular Volume 100.7 fL (80-100); Mean Platelet Volume 9.3 fL (7.4-10.4); Platelet Count 193 K/uL (130-400); RDW Coefficient of Variation 14.1 % (11.5-14.5); RDW Standard Deviation 51.7 fL (36.4-46.3); Red Blood Count 4.32 M/uL (4.2-5.4); White Blood Count 14.18 K/uL (4.8-10.8)
[2020-12-04 15:21] LABS: Partial Thromboplastin Time 25.1 Seconds (21.0-31.0); Prothrombin Time 10.5 Seconds (9.0-12.0)
[2020-12-04 15:29] LABS: Albumin Level 3.9 gm/dl (3.4-5.0); Aspartate Aminotransferase 27 U/L (15-37); BUN Creatinine Ratio 24.1 (10-20); Blood Urea Nitrogen 47 mg/dl (7-18); Calcium 11.1 mg/dl (8.5-10.1); Carbon Dioxide 32 mmol/L (21-32); Chloride 97 mmol/L (98-107); Creatinine Clr Calc Pharmacy 25.5 ml/min; Est GFR (African American) 27.3 ml/min; Est GFR (Non-African American) 23.5 ml/min; Glucose 98 mg/dl (70-99); Magnesium 2.2 mg/dl (1.8-2.4); Potassium 4.3 mmol/L (3.5-5.1); Sodium 136 mmol/L (136-145)
[2020-12-04 15:39] LABS: Alanine Aminotransferase 37 U/L (12-78); Albumin Globulin Ratio 1.2 (0.9-2); Alkaline Phosphatase 78 U/L (45-117); Bilirubin,Total 1.2 mg/dl (0.2-1); Globulin 3.2 gm/dl (2.5-4.0); Total Protein 7.1 gm/dl (6.4-8.2); Troponin I < 0.015 ng/ml (0-0.045)
[2020-12-04 16:20] LABS: ALC (manual) 7.27 K/uL (1.2-3.4); Lymphocytes # (manual) 6.04 K/uL (1.2-3.4); Lymphocytes % (manual) 42.6 %; Monocytes # (manual) 1.11 K/uL (0.11-0.59); Monocytes % (manual) 7.8 %; Neutrophils % (manual) 40.9 %; Polychromasia 1+; Reactive Lymphocytes # (manual) 1.23 K/uL; Reactive Lymphocytes % (manual) 8.7 %
[2020-12-04 16:49] LABS: Appearance Urine Clear (Clear); Bacteria Urine Automated 2+ (Negative); Bilirubin Urine Negative (Negative); Blood Urine 1+ (Negative); Color Urine Yellow; Epithelial Cell Urine Auto >30 /lpf (0-5); Glucose Urine UA Negative (Negative); Ketones Urine Negative (Negative); Leukocyte Esterase Urine Trace (Negative); Nitrite Urine Negative (Negative); Protein Urine Negative (Negative); Specific Gravity Urine 1.011 (1.000-1.030); Urobilinogen Urine Negative (Negative)
[2020-12-04 17:01] LABS: RBC Urine Automated 0-4 /hpf (0-4)
[2020-12-04] MEDS ORDERED: DIGOXIN 500 MCG/2 ML AMP IV ONE (17:07)
[2020-12-04] MEDS ORDERED: BUMETANIDE 2 MG in SYRINGE 0 ML IV ONE (17:08)
[2020-12-04] MEDS ORDERED: DIGOXIN 125 MCG in SYRINGE 9.5 ML IV ONE (17:30)
--- NOTE | 2020-12-04 18:11 | History & Physical Report ---
Date of Service December 04, 2020 Assessment & Plan (1) Atrial flutter: Plan: with rapid ventricular rate Observation status to PCU Continue on increased dose of digoxin Continue metoprolol succinate 100mg PO BID with hold parameters Continue anticoagulation with Eliquis Consult cardiology to consider LIEN cardioversion (2) Right heart failure: Plan: Diurese as able depending on blood pressure and renal function. Appears right sided volume overloaded on echo however no significant pulmonary edema. Suspect most likely risght sided heart failure secondary to chronic respiratory failure, obesity hypoventilation and JHOANA therefore may find extra diuresis causes worsening renal function Continue with usual Bumex dosing tomorrow but adjust depending on renal function. (3) CKD (chronic kidney disease) stage 3, GFR 30-59 ml/min: Plan: Cr mildly worse than usual. Appears hypervolemic on exam. Monitor Cr with increased diuretics today. Continue spironolactone and Bumex (4) Sleep apnea: Plan: BiPAP 12/6 HS and PRN (5) CLL (chronic lymphocytic leukemia): Plan: Lymphocytes at baseline Continue leg wraps for presumably lymphedema (6) Hypothyroidism: Plan: Continue levothyroxine 25 mcg PO daily (7) Chronic respiratory failure with hypoxia: Plan: Continue 2LPM O2. Wean as able to aim O2 > 90% Plan: Diet - Heart healthy Disposition - observation status to PCU Admission and Anticipated Discharge Date Admission Date: December 04, 2020 History of Present Illness Chief Complaint: Tachycardia and hypotension Primary Care Provider: Gallo Saravia MD Kenzie Pritchard is an 84 year old female admission for atrial flutter with rapid ventricular rate. She reports having no symptoms at this time. No chest pain, shortness of breath, palpitations, orthopnea, PND. She has chronic leg swelling but unable to tell me whether this is worse than usual. She was sent to the ER by [facility] due to hypotension after recent adjustment to her medications by cardiology for new atrial flutter causing hypotension. Her care was discussed with cardiology by the ER physician and recommended inpatient admission to better control her atrial flutter at this time. Reportedly atrial flutter is a new diagnosis for her which started approximately 1.5 weeks ago. She has been started on anticoagulation with Eliquis and tried rate control with limited success. TTE on 12/03 showed no wall motion abnormalities but RV was dilated suggestive of hypervolemia. Allergies Allergy/AdvReac Type Severity Reaction Status Date / Time Iodinated Contrast Media Allergy Unknown As Per Unverified 12/04/20 13:59 [facility] tramadol Allergy Unknown As Per Unverified 12/04/20 13:59 [facility] Home Medications Medication Instructions Recorded Confirmed Type alendronate 70 mg tablet 70 mg PO WK tab 02/07/18 12/04/20 History levothyroxine 25 mcg capsule 25 mcg PO QAM 02/07/18 12/04/20 History pramipexole 0.5 mg tablet 0.5 mg PO BID 08/08/18 12/04/20 History acetaminophen 325 mg capsule 325 mg PO QID PRN 12/03/20 12/04/20 History (Tylenol) apixaban 2.5 mg tablet (Eliquis) 2.5 mg PO BID 12/03/20 12/04/20 History bumetanide 1 mg tablet 3 mg PO QAM tab 12/03/20 12/04/20 History cholecalciferol (vitamin D3) 50 50 mcg PO QAM 12/03/20 12/04/20 History mcg (2,000 unit) capsule colloidal oatmeal 1 % topical 1 applic TOPICAL BID PRN 12/03/20 12/04/20 History cream (Eucerin Eczema Relief) metoprolol succinate 100 mg 100 mg PO BID 12/03/20 12/04/20 History tablet,extended release 24 hr mupirocin 2 % topical ointment 1 applic TOPICAL PM 12/03/20 12/04/20 History prenat.vits,radha,[id number] 1 tab PO QAM 12/03/20 12/04/20 History spironolactone 50 mg tablet 75 mg PO BID tab 12/03/20 12/04/20 History digoxin 250 mcg (0.25 mg) tablet 250 mcg PO QAM 12/04/20 12/04/20 History Past Med/Surg History Medical History (Updated 12/05/20 @ 07:20 by Carloz Riggs MD) CLL (chronic lymphocytic leukemia) Edema HTN (hypertension) Hx of colonic polyp Hx-daniel malform-heart PATENT TAM OVALE Hypothyroid Muscle weakness Osteoarthritis Osteoporosis Restless legs syndrome Sleep apnea Surgical History S/P appendectomy S/P bilateral cataract extraction S/P breast lumpectomy S/P knee surgery S/P tonsillectomy Family History Other Diabetes Social History Smoking Status: Former smoker Second Hand Exposure: No; Hx Alcohol Use: Yes Alcohol type: wine Alcohol Intake Frequency Comment: STATED A GLASS OF WINE EVERY MONTH OR SO Hx Substance Use: No Preferred Language: Latvian Communication Ability: Effective Visual Impairment: Limited Hearing Ability: Normal Medical Assistant Supervisor Required: No Beliefs That Will Affect Care: None marital status: marital status details: DEAN MERAZ Current Living Situation: Spouse Current Living Situation Comment: [facility] current occupational status: retired current occupation: WORKED IN [employer] ON FEET A LOT DURING WORKING HX Other Information That Helps Us Care for You: No Feels Safe at Home: Yes during the past year weight has: decreased > 10 lbs Assistive Devices: Glasses, Oxygen - Continuous and Walker Review of Systems Review of Systems: All systems reviewed & are unremarkable except as noted in HPI & below Physical Exam Constitutional: WD/WN, vitals as above + morbidly obese Eyes: + anicteric sclerae; normal pupil size ENMT: external ear and nose normal, oropharynx normal Neck: trachea midline, no thyromegaly Respiratory: normal respiratory effort; no labored breathing and does not use accessory muscles Auscultation: + diminished lung sounds (bibasal); no crackles and no wheezes Cardiovascular: Rate/Rhythm: + tachycardic and + irregularly irregular Heart Sounds: no murmur Extremities: normal capillary refill and + pedal edema (2+ to knees b/l equal with venous dermatitis changes); no calf tenderness Gastrointestinal (Abdomen): Inspection/Auscultation: abdomen normal to inspection and normal bowel sounds Percussion/Palpation: abdomen soft; abdomen nontender, no guarding and abdomen not rigid Musculoskeletal: no cyanosis or clubbing, extremities motor strength 5/5 Skin: no rashes, warm and dry Neurologic: moves all extremities and awake; not confused Psychiatric: A+Ox3, euthymic affect Results & Data Results & Data ([facility]) Vital Signs (Past 12 Hours) Vital Signs Temp Pulse Resp BP Pulse Ox 12/04/20 17:12 119 H 31 H 101/71 98 12/04/20 17:00 128 H 21 97 12/04/20 16:47 119 H 18 100 12/04/20 16:30 113 H 19 91/65 L 99 12/04/20 16:15 118 H 21 106/79 98 12/04/20 16:00 119 H 17 106/70 100 12/04/20 15:45 89 25 H 110/88 99 12/04/20 15:30 119 H 23 105/73 100 12/04/20 15:05 117 H 117/87 12/04/20 14:30 118 H 17 100 12/04/20 13:30 119 H 20 101/74 12/04/20 13:05 36.8 C 102 H 25 H 103/68 96 Diagnostic Findings XR chest 1V portable FINDINGS: The heart remains mildly enlarged. No new focal lung consolidations to suggest pneumonia. No evidence for pulmonary edema. No pleural effusions. No pneumothorax. Stable bilateral hilar prominence likely due to the enlarged pulmonary arteries. IMPRESSION: No significant change compared to the prior study. No acute process. Medications Administered ER Medications Given: Metoprolol 5mg IV Digoxin 125 mcg IV Bumex 2gm IV ECG Indication: other Rate (beats per minute): 92 Rhythm: atrial flutter Findings: no acute ischemic change Comparison ECG Date: from (August 08, 2018) Change: the following changes noted (Atrial flutter replaced sinus rhythm) Code Status & VTE Plan Code Status DNR/DNI VTE Prophylaxis Plan VTE Prophylaxis will be ordered: Yes PG Care Time/CCT Total # of Minutes Spent Total Time Spent with Patient: Total time spent is greater than 50% in coordination of care (as documented) at patient's floor/unit and/or counseling patient: Coding Level of Care Code INT OBSERVATION CARE 70M LVL 3 Diagnoses Atrial flutter I48.92 Right heart failure I50.810 Sleep apnea G47.30 CLL (chronic lymphocytic leukemia) C91.90 Hypothyroidism E03.9 Chronic respiratory failure with hypoxia J96.11 CKD (chronic kidney disease) stage 3, GFR 30-59 ml/min N18.30
[2020-12-04] MEDS ORDERED: COLLOIDAL OATMEAL TOP PRN (19:39)
[2020-12-04] MEDS: APIXABAN 2.5 MG TAB PO SCH (21:24)
[2020-12-04] MEDS: PRAMIPEXOLE DIHYDROCHLO 0.5 MG TAB PO SCH (21:24)
[2020-12-04] MEDS: METOPROLOL SUCC 50MG EXT REL TAB PO SCH (21:25)
[2020-12-04] MEDS: SPIRONOLACTONE 25 MG TAB PO SCH (22:21)
[2020-12-05] MEDS: LEVOTHYROXINE SODIUM 25 MCG TABLET PO SCH (05:34)
[2020-12-05 06:49] LABS: Hematocrit (blood only) 44.8 % (37-47); Hemoglobin 14.9 g/dL (12.0-16.0); Mean Corpuscular Hemoglobin 33.6 pg (25-34); Mean Corpuscular Hgb Conc 33.3 g/dL (32-36); Mean Corpuscular Volume 101.1 fL (80-100); Mean Platelet Volume 9.6 fL (7.4-10.4); Platelet Count 196 K/uL (130-400); RDW Coefficient of Variation 14.1 % (11.5-14.5); RDW Standard Deviation 51.4 fL (36.4-46.3); Red Blood Count 4.43 M/uL (4.2-5.4); White Blood Count 13.96 K/uL (4.8-10.8)
[2020-12-05 07:17] LABS: BUN Creatinine Ratio 23.8 (10-20); Calcium 10.6 mg/dl (8.5-10.1); Creatinine Clr Calc Pharmacy 25.7 ml/min; Est GFR (African American) 29.1 ml/min; Est GFR (Non-African American) 25.1 ml/min; Potassium 4.4 mmol/L (3.5-5.1)
[2020-12-05 07:43] LABS: Basophils # (auto) 0.04 K/uL (0-0.2); Basophils % (auto) 0.3 %; Eosinophils # (auto) 0.01 K/uL (0-0.5); Eosinophils % (auto) 0.1 %; Immature Granulocytes # (auto) 0.07 K/uL (0.00-0.02); Immature Granulocytes % (auto) 0.5 %; Lymphocytes # (auto) 5.96 K/uL (1.2-3.4); Lymphocytes % (auto) 42.7 %; Monocytes # (auto) 1.22 K/uL (0.11-0.59); Monocytes % (auto) 8.7 %; Neutrophils # (auto) 6.66 K/uL (1.4-6.5); Neutrophils % (auto) 47.7 %; Smudge Cells Present
[2020-12-05] MEDS: METOPROLOL SUCC 50MG EXT REL TAB PO SCH (08:31)
[2020-12-05] MEDS: PRAMIPEXOLE DIHYDROCHLO 0.5 MG TAB PO SCH ×2 (08:31→20:39)
[2020-12-05] MEDS: BUMETANIDE 1 MG TAB PO SCH ×2 (08:31→09:51)
[2020-12-05] MEDS: DIGOXIN 0.25 MG TAB PO SCH ×2 (08:31→09:51)
[2020-12-05] MEDS: SPIRONOLACTONE 25 MG TAB PO SCH ×2 (08:31→16:02)
[2020-12-05] MEDS: APIXABAN 2.5 MG TAB PO SCH ×2 (08:31→20:39)
--- NOTE | 2020-12-05 13:33 | Anesthesiology Consultation ---
Date of Service December 05, 2020 Assessment & Plan (1) Encounter for pre-operative examination: Chart Review Chart Review: Acceptable Risk for Surgery History Height/Weight Height: 5 ft Weight: 104.7 kg Allergies Allergy/AdvReac Type Severity Reaction Status Date / Time Iodinated Contrast Media Allergy Unknown As Per Unverified 12/04/20 13:59 [facility] tramadol Allergy Unknown As Per Unverified 12/04/20 13:59 [facility] Medications Home Medications Medication Instructions Recorded Confirmed Last Taken alendronate 70 mg tablet 70 mg PO WK tab 02/07/18 12/04/20 12/04/20 levothyroxine 25 mcg capsule 25 mcg PO QAM 02/07/18 12/04/20 12/04/20 pramipexole 0.5 mg tablet 0.5 mg PO BID 08/08/18 12/04/20 12/04/20 acetaminophen 325 mg capsule 325 mg PO QID PRN 12/03/20 12/04/20 12/03/20 17:59 (Tylenol) pain level 4 apixaban 2.5 mg tablet (Eliquis) 2.5 mg PO BID 12/03/20 12/04/20 12/04/20 bumetanide 1 mg tablet 3 mg PO QAM tab 12/03/20 12/04/20 12/04/20 cholecalciferol (vitamin D3) 50 50 mcg PO QAM 12/03/20 12/04/20 12/04/20 mcg (2,000 unit) capsule colloidal oatmeal 1 % topical 1 applic TOPICAL BID PRN 12/03/20 12/04/20 Unknown cream (Eucerin Eczema Relief) metoprolol succinate 100 mg 100 mg PO BID 12/03/20 12/04/20 12/03/20 tablet,extended release 24 hr mupirocin 2 % topical ointment 1 applic TOPICAL PM 12/03/20 12/04/20 12/03/20 prenat.vits,radha,[id number]-svpwr 1 tab PO QAM 12/03/20 12/04/20 12/04/20 spironolactone 50 mg tablet 75 mg PO BID tab 12/03/20 12/04/20 12/03/20 digoxin 250 mcg (0.25 mg) tablet 250 mcg PO QAM 12/04/20 12/04/2021 Active Medications Generic Name Dose Route Start Last Admin Trade Name Kevinq PRN Reason Stop Dose Admin Apixaban 2.5 mg 12/04/20 21:00 12/05/20 08:31 Apixaban 2.5 Mg Tab PO 01/03/21 20:59 2.5 mg BID LA Administration Bumetanide 3 mg 12/05/20 09:00 12/05/20 09:51 Bumetanide 1 Mg Tab PO 01/04/21 08:59 Not Given QAM LA Digoxin 0.25 mg 12/05/20 09:00 12/05/20 09:51 Digoxin 0.25 Mg Tab PO 01/04/21 08:59 Not Given QAM LA Levothyroxine Sodium 25 mcg 12/05/20 06:30 12/05/20 05:34 Levothyroxine Sodium 25 Mcg Tablet PO 01/04/21 06:29 25 mcg DAILYBB LA Administration Metoprolol Succinate 100 mg 12/04/20 21:00 12/05/20 08:31 Metoprolol Succ 50mg Ext Rel Tab PO 01/03/21 20:59 100 mg BID LA Administration Pramipexole Dihydrochloride 0.5 mg 12/04/20 21:00 12/05/20 08:31 Pramipexole Dihydrochlo 0.5 Mg Tab PO 01/03/21 20:59 0.5 mg BID LA Administration Spironolactone 75 mg 12/04/20 21:45 12/05/20 08:31 Spironolactone 25 Mg Tab PO 01/03/21 21:44 75 mg BID17 LA Administration Past Medical History Medical History (Updated 12/05/20 @ 13:33 by Rogelio Pereira MD) CLL (chronic lymphocytic leukemia) Edema HTN (hypertension) Hx of colonic polyp Hx-daniel malform-heart PATENT TAM OVALE Hypothyroid Muscle weakness Osteoarthritis Osteoporosis Restless legs syndrome Sleep apnea Past Family History Family History Other Diabetes Past Surgical History Surgical History S/P appendectomy S/P bilateral cataract extraction S/P breast lumpectomy S/P knee surgery S/P tonsillectomy Social History Smoking Status: Former smoker tobacco type: cigarettes Hx Alcohol Use: Yes Alcohol type: wine alcohol intake frequency: a few times a month Hx Substance Use: No substance use type: does not use Physical Exam Vital Signs Last Vital Signs Temp 36.5 C 12/05/20 10:54 Pulse 121 H 12/05/20 10:54 Resp 23 12/05/20 10:54 BP 101/65 12/05/20 10:54 Pulse Ox 98 12/05/20 10:54 Testing Laboratory Results 12/05/20 06:26 12/05/20 06:26 PT 10.5 Seconds (9.0-12.0) 12/04/20 14:56 INR 1.0 (0.9-1.1) 12/04/20 14:56 APTT 25.1 Seconds (21.0-31.0) 12/04/20 14:56 Urine Color Yellow 12/04/20 16:37 Urine Appearance Clear (Clear) 12/04/20 16:37 Urine pH 6.0 (4.5-7.5) 12/04/20 16:37 Ur Specific [place] 1.011 (1.000-1.030) 12/04/20 16:37 Urine Protein Negative (Negative) 12/04/20 16:37 Urine Glucose (UA) Negative (Negative) 12/04/20 16:37 Urine Ketones Negative (Negative) 12/04/20 16:37 Urine Nitrite Negative (Negative) 12/04/20 16:37 Ur Leukocyte Esterase Trace (Negative) H 12/04/20 16:37 Urine WBC (Auto) 1-5 /hpf (0-5) 12/04/20 16:37 Urine RBC (Auto) 0-4 /hpf (0-4) 12/04/20 16:37 U Hyaline Cast (Auto) 1-5 /lpf (0-5) 12/04/20 16:37 U Epithel Cells (Auto) >30 /lpf (0-5) H 12/04/20 16:37 Urine Bacteria (Auto) 2+ (Negative) H 12/04/20 16:37 12/04/20 16:37 Urine Culture - Final Urine,Clean Catch More than three types of organisms present, all high counts mixed probable skin juan - No further identifications or sensitivities to follow. Electrocardiogram Date: 12/04/20 Findings: + AFIB @ (92) Echocardiogram Date: 12/03/20 LV Function: normal Valvular Disease: + no significant valvular disease Moderate right ventricular dysfunction
[2020-12-05] MEDS ORDERED: CANNULA ONE (14:06)
[2020-12-05] MEDS ORDERED: LIDOCAINE 2% 2 ML VIAL/AMP(20MG/ML) INFIL ONE ×2 (14:34)
[2020-12-05] MEDS ORDERED: PROPOFOL IV EMULSION 10 MG/ML 20 ML VIAL IV ONE (14:34)
--- NOTE | 2020-12-05 14:34 | Anesthesiology Progress Note ---
Date of Service December 05, 2020 Anesthesia Post Procedure Vital Signs Vital Signs: Temp Pulse Pulse Resp BP BP Pulse Ox 12/05/20 10:54 36.5 C 121 H 23 101/65 98 12/05/20 08:00 123 H 12/05/20 07:08 36.7 C 122 H 19 100/68 100 12/05/20 03:19 36.5 C 120 H 20 120/77 94 12/05/20 01:18 120 H 12/04/20 23:05 36.4 C L 117 H 22 91/66 L 99 12/04/20 22:24 113 H 19 97 12/04/20 19:39 36.8 C 121 H 18 133/78 98 12/04/20 19:34 121 H 12/04/20 18:30 118 H 23 98/76 L 100 12/04/20 18:10 115 H 12/04/20 18:00 118 H 22 92/49 L 100 12/04/20 17:30 118 H 22 105/63 98 12/04/20 17:12 119 H 31 H 101/71 98 12/04/20 17:00 128 H 21 97 12/04/20 16:47 119 H 18 100 12/04/20 16:30 113 H 19 91/65 L 99 12/04/20 16:15 118 H 21 106/79 98 12/04/20 16:00 119 H 17 106/70 100 12/04/20 15:45 89 25 H 110/88 99 12/04/20 15:30 119 H 23 105/73 100 12/04/20 15:05 117 H 117/87 Pulse Ox 12/05/20 10:54 12/05/20 08:00 12/05/20 07:08 12/05/20 03:19 12/05/20 01:18 12/04/20 23:05 12/04/20 22:24 12/04/20 19:39 98 12/04/20 19:34 12/04/20 18:30 12/04/20 18:10 12/04/20 18:00 12/04/20 17:30 12/04/20 17:12 12/04/20 17:00 12/04/20 16:47 12/04/20 16:30 12/04/20 16:15 12/04/20 16:00 12/04/20 15:45 12/04/20 15:30 12/04/20 15:05 14:30 bp 108/56 hr 81 o2 sat 97% Pain Intensity Bilateral Lower Leg: Pain Intensity: 2 Transfer of Care Handoff Completed per policy Notes Mental Status: alert / awake / arousable Patient Amnestic to Procedure: Yes Nausea / Vomiting: adequately controlled Pain: adequately controlled Airway Patency, RR, SpO2: stable & adequate BP & HR: stable & adequate Hydration State: stable & adequate Anesthetic Complications: no major complications apparent
--- NOTE | 2020-12-05 14:47 | Cardioversion ---
Date of Service December 05, 2020 PG Electrical Cardioversion Rp Electrical Cardioversion Report Procedure: Direct current cardioversion (elective) Indication: Atrial flutter with rapid ventricular response Anticoagulation: Eliquis Consent: Informed consent was obtained from her (Jose Roberto Pritchard), as she does not appear to be reliable to give informed written consent at this time. Phone call was witnessed by nursing staff. Time out: Time-out was performed prior to procedure. Sedation: Provided by Dr. Pereira of Anesthesiology. LIEN: A limited LIEN was performed to limit sedation given hypotension and other comorbidities, as per Anesthesia request. Preliminary review demonstrated no left atrial appendage thrombus. Cardioversion: After she was sufficiently sedated, atrial flutter was successfully converted to sinus rhythm with 100 joules delivered in a sy nchronized fashion. She tolerated the procedure, without known complication at the time of this documentation. Plan: 1. Continue anticoagulation without interruption for at least 4 weeks, however indefinite anticoagulation is indicated. 2. Can discontinue digoxin as it did not appear to sufficiently control her heart rate while in atrial flutter. 3. Due to hypotension, can reduce metoprolol succinate to 100 mg daily. 4. For recurrence, could consider anti arrhythmic therapy such as amiodarone. Ablation was also discussed however patient and wished to avoid ablation if possible. Coding Level of Care Code Cardioversion, elective Additional Codes Electrical Cardioversion Report ([id number])
--- NOTE | 2020-12-05 15:03 | Cardiology Consultation ---
Date of Consultation December 05, 2020 Assessment & Plan (1) Atrial flutter: (2) Right heart failure: (3) Chronic respiratory failure with hypoxia: (4) ASD (atrial septal defect): (5) Hypotension: ASSESSMENT/PLAN: 1. Atrial flutter: Atrial flutter remain tachycardic despite rate-controlling medications and she was having issues with hypotension with titration of these medications. Recommended transesophageal echo and cardioversion. She was not sure but her helps make her medical decisions due to her confusion. He was contacted via telephone and wanted to think things over and discussed with his . He ultimately decided to move forward with LIEN and cardioversion. Risks and benefits were discussed with him in detail. Continue anticoagulation for stroke risk reduction. Continue beta-trina. 2. Right heart failure: Reportedly a more chronic issue. She does not appear to be significantly hypervolemic. 3. Hypotension: Likely due to titration of her rate controlling medications. After cardioversion, would reduce metoprolol. 4. Chronic respiratory failure with hypoxia: As per primary service. 5. ASD Secundum: Reported in patient's history. Full details not known. 6. Disposition: Planned for transesophageal echo and if no left atrial appen dage thrombus, proceed with cardioversion. Patient care communicated with Dr. Uribe of the primary hospitalist service. I will not be in the hospital for the next several days but Dr. King will be covering. He was made aware of patient care/plan. Highly complex medical issues. Addendum: She underwent transesophageal echo but limited views were taken as Anesthesiology requested a brief procedure given concerns over her respiratory status and blood pressure during sedation. She appeared to have an accessory inter atrial septum. No left atrial thrombus was noted. She underwent card ioversion which successfully converted her to sinus rhythm. Plan: 1. Can discontinue digoxin, as it did not appear to offer much benefit for rate control during atrial flutter. 2. Can reduce metoprolol succinate to 100 mg daily, which may help improve her blood pressure, which has been an issue (hypotension). 3. Family was notified that recurrence could occur, and if so would consider amiodarone as they do not appear to be interested in ablation. History of Present Illness Reason for Consultation: Atrial flutter Requesting Physician: Dr. Riggs Attending Physician: Arnold Uribe, DO History of Present Illness Mrs. 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 She was admitted on 12/04/2020 with atrial flutter and rapid ventricular response. She has been seen in the cardiology office by Mr. Bruce Jacobeler. Mr. Aiken evaluated her on 12/03/2020 for atrial flutter. Elevated heart rate was reportedly occurring for approximately 1 month. She was placed on Eliquis 2.5 mg twice daily and metoprolol XL 100 mg b.i.d. along with digoxin 125 mcg daily prior to meeting with Mr. Aiken. Because her heart rate remained elevated, digoxin was increased to 250 mcg daily in an echocardiogram was ordered and performed. She resides at [facility] and continued to have issues with tachycardia. She also developed hypotension, which limited further adjustment of her rate-controlling medications. Because of this, she was sent to the hospital for evaluation and admission. She was seen this morning. She is a poor historian and appears confused. She denied palpitations chest pain, shortness of breath, or bleeding. She recalls having lower extremity swelling. History was obtained by talking to patient in reviewing records. Per nursing staff, she has been having some episodes of par anoia. She admits that she is sedentary. She has had the following studies/procedures: 1. Echo 12/03/2020: Normal LV size, wall motion, systolic function. EF 60-65%. Moderately dilated RV with mildly reduced systolic function. Mild biatrial dilation. Mildly elevated RVSP, but improved compared to prior on 08/08/2018. Review of systems: As above. Review of systems otherwise negative/unremarkable. Family history: Diabetes. Social history: Quit smoking many years ago. Rare alcohol. [facility] Three children. Allergies Allergy/AdvReac Type Severity Reaction Status Date / Time Iodinated Contrast Media Allergy Unknown As Per Unverified 12/04/20 13:59 [facility] tramadol Allergy Unknown As Per Unverified 12/04/20 13:59 [facility] Home Medications Medication Instructions Recorded Confirmed Type alendronate 70 mg tablet 70 mg PO WK tab 02/07/18 12/04/20 History levothyroxine 25 mcg capsule 25 mcg PO QAM 02/07/18 12/04/20 History pramipexole 0.5 mg tablet 0.5 mg PO BID 08/08/18 12/04/20 History acetaminophen 325 mg capsule 325 mg PO QID PRN 12/03/20 12/04/20 History (Tylenol) apixaban 2.5 mg tablet (Eliquis) 2.5 mg PO BID 12/03/20 12/04/20 History bumetanide 1 mg tablet 3 mg PO QAM tab 12/03/20 12/04/20 History cholecalciferol (vitamin D3) 50 50 mcg PO QAM 12/03/20 12/04/20 History mcg (2,000 unit) capsule colloidal oatmeal 1 % topical 1 applic TOPICAL BID PRN 12/03/20 12/04/20 History cream (Eucerin Eczema Relief) metoprolol succinate 100 mg 100 mg PO BID 12/03/20 12/04/20 History tablet,extended release 24 hr mupirocin 2 % topical ointment 1 applic TOPICAL PM 12/03/20 12/04/20 History prenat.vits,radha,drf-rwua-kuiyg 1 tab PO QAM 12/03/20 12/04/20 History spironolactone 50 mg tablet 75 mg PO BID tab 12/03/20 12/04/20 History digoxin 250 mcg (0.25 mg) tablet 250 mcg PO QAM 12/04/20 12/04/20 History Patient History Medical History (Updated 12/05/20 @ 22:49 by Tima Peterson MD) CLL (chronic lymphocytic leukemia) Edema HTN (hypertension) Hx of colonic polyp Hx-daniel malform-heart PATENT TAM OVALE Hypothyroid Muscle weakness Osteoarthritis Osteoporosis Restless legs syndrome Sleep apnea Surgical History S/P appendectomy S/P bilateral cataract extraction S/P breast lumpectomy S/P knee surgery S/P tonsillectomy Family History Other Diabetes Social History Smoking Status: Former smoker Second Hand Exposure: No; Hx Alcohol Use: Yes Alcohol type: wine Alcohol Intake Frequency Comment: STATED A GLASS OF WINE EVERY MONTH OR SO Hx Substance Use: No Preferred Language: Arabic Communication Ability: Impaired Visual Impairment: Limited Hearing Ability: Normal Pack Worker Required: No Beliefs That Will Affect Care: None marital status: marital status details: DEAN MERAZ Current Living Situation: Spouse Current Living Situation Comment: Dean current occupational status: retired current occupation: WORKED IN THE [employer] ON FEET A LOT DURING WORKING HX How many Children do You have: 3 Other Information That Helps Us Care for You: No Feels Safe at Home: Yes during the past year weight has: decreased > 10 lbs Assistive Devices: BiPap, Oxygen - Continuous, Walker and Wheelchair Physical Exam Physical Exam: Gen.: No acute distress. Alert and oriented to self, place and month. HEENT: Anicteric sclera. Neck: No appreciable JVD. No bruits. Normal carotid upstrokes bilaterally. Cardiac: PMI was nonpalpable. No ventricular heave. Regular and tachycardic approximately 120 bpm. Normal S1-S2. No murmurs, rubs, or gallops. Pulmonary: Decreased breath sounds bilaterally, but otherwise clear to auscultation bilaterally without wheezes, rales, or rhonchi. Abdomen: Soft, nontender, nondistended, with normoactive bowel sounds. No bruits noted. Extremities: 2+ radial pulses bilaterally. 2+ posterior tibialis pulses bilaterally. Trace bilateral lower extremity edema. No cyanosis. Results & Data ([facility]) Vital Signs (Past 12 Hours) Vital Signs Temp Pulse Pulse Resp BP Pulse Ox 12/05/20 14:45 78 18 106/80 95 12/05/20 14:31 82 18 108/70 98 12/05/20 10:54 36.5 C 121 H 23 101/65 98 12/05/20 08:00 123 H 12/05/20 07:08 36.7 C 122 H 19 100/68 100 12/05/20 03:19 36.5 C 120 H 20 120/77 94 Laboratory Results Laboratory Results - last 24 hr 12/04/20 12/04/20 12/04/20 14:56 14:56 14:56 WBC 14.18 H RBC 4.32 Hgb 14.6 Hct 43.5 MCV 100.7 H MCH 33.8 MCHC 33.6 RDW Std Deviation 51.7 H RDW Coeff of Beti 14.1 Plt Count 193 MPV 9.3 Immature Gran % (Auto) Neut % (Auto) Lymph % (Auto) [place] % (Auto) Eos % (Auto) Baso % (Auto) Neut # (Auto) Lymph # (Auto) [place] # (Auto) Eos # (Auto) Baso # (Auto) Immature Gran # (Auto) Neutrophils % (Manual) 40.9 Lymphocytes % (Manual) 42.6 Reactive Lymphs % (Man) 8.7 Monocytes % (Manual) 7.8 Neutrophils # (Manual) 5.80 Total Absolute Neuts 5.80 Lymphocytes # (Manual) 6.04 H Reactive Lymphs # 1.23 Total Abs Lymphocytes 7.27 H Monocytes # (Manual) 1.11 H Smudge Cells Blood Smear Review Cancelled Polychromasia 1+ PT 10.5 INR 1.0 APTT 25.1 PTT Ratio 1.0 Sodium 136 Potassium 4.3 Chloride 97 L Carbon Dioxide 32 Anion Gap 7.0 BUN 47 H Creatinine 1.94 H Est Cr Clr Drug Dosing 25.5 Est GFR ( Amer) 27.3 Est GFR (Non-Af Amer) 23.5 BUN/Creatinine Ratio 24.1 H Glucose 98 Calcium 11.1 H Magnesium 2.2 Total Bilirubin 1.2 H AST 27 ALT 37 Alkaline Phosphatase 78 Troponin I < 0.015 NT-Pro-B Natriuret Pep Total Protein 7.1 Albumin 3.9 Globulin 3.2 Albumin/Globulin Ratio 1.2 TSH 3.760 Urine Color Urine Appearance Urine pH Ur Specific [place] Urine Protein Urine Glucose (UA) Urine Ketones Urine Blood Urine Nitrite Urine Bilirubin Urine Urobilinogen Ur Leukocyte Esterase Urine WBC (Auto) Urine RBC (Auto) U Hyaline Cast (Auto) U Epithel Cells (Auto) Urine Bacteria (Auto) Digoxin COVID-19 Eval Order SARS-CoV-2 (PCR) 12/04/20 12/04/20 12/04/20 14:56 16:37 17:06 WBC RBC Hgb Hct MCV MCH MCHC RDW Std Deviation RDW Coeff of Beti Plt Count MPV Immature Gran % (Auto) Neut % (Auto) Lymph % (Auto) [place] % (Auto) Eos % (Auto) Baso % (Auto) Neut # (Auto) Lymph # (Auto) [place] # (Auto) Eos # (Auto) Baso # (Auto) Immature Gran # (Auto) Neutrophils % (Manual) Lymphocytes % (Manual) Reactive Lymphs % (Man) Monocytes % (Manual) Neutrophils # (Manual) Total Absolute Neuts Lymphocytes # (Manual) Reactive Lymphs # Total Abs Lymphocytes Monocytes # (Manual) Smudge Cells Blood Smear Review Polychromasia PT INR APTT PTT Ratio Sodium Potassium Chloride Carbon Dioxide Anion Gap BUN Creatinine Est Cr Clr Drug Dosing Est GFR ( Amer) Est GFR (Non-Af Amer) BUN/Creatinine Ratio Glucose Calcium Magnesium Total Bilirubin AST ALT Alkaline Phosphatase Troponin I NT-Pro-B Natriuret Pep Total Protein Albumin Globulin Albumin/Globulin Ratio TSH Urine Color Yellow Urine Appearance Clear Urine pH 6.0 Ur Specific [place] 1.011 Urine Protein Negative Urine Glucose (UA) Negative Urine Ketones Negative Urine Blood 1+ H Urine Nitrite Negative Urine Bilirubin Negative Urine Urobilinogen Negative Ur Leukocyte Esterase Trace H Urine WBC (Auto) 1-5 Urine RBC (Auto) 0-4 U Hyaline Cast (Auto) 1-5 U Epithel Cells (Auto) >30 H Urine Bacteria (Auto) 2+ H Digoxin 1.0 COVID-19 Eval Order Covid19 at [facility] SARS-CoV-2 (PCR) 12/04/20 12/05/20 12/05/20 17:06 06:26 06:26 WBC 13.96 H RBC 4.43 Hgb 14.9 Hct 44.8 MCV 101.1 H MCH 33.6 MCHC 33.3 RDW Std Deviation 51.4 H RDW Coeff of Beti 14.1 Plt Count 196 MPV 9.6 Immature Gran % (Auto) 0.5 Neut % (Auto) 47.7 Lymph % (Auto) 42.7 [place] % (Auto) 8.7 Eos % (Auto) 0.1 Baso % (Auto) 0.3 Neut # (Auto) 6.66 H Lymph # (Auto) 5.96 H [place] # (Auto) 1.22 H Eos # (Auto) 0.01 Baso # (Auto) 0.04 Immature Gran # (Auto) 0.07 H Neutrophils % (Manual) Lymphocytes % (Manual) Reactive Lymphs % (Man) Monocytes % (Manual) Neutrophils # (Manual) Total Absolute Neuts Lymphocytes # (Manual) Reactive Lymphs # Total Abs Lymphocytes Monocytes # (Manual) Smudge Cells Present Blood Smear Review Polychromasia PT INR APTT PTT Ratio Sodium 135 L Potassium 4.4 Chloride 98 Carbon Dioxide 31 Anion Gap 6.0 BUN 44 H Creatinine 1.84 H Est Cr Clr Drug Dosing 25.7 Est GFR ( Amer) 29.1 Est GFR (Non-Af Amer) 25.1 BUN/Creatinine Ratio 23.8 H Glucose 108 H Calcium 10.6 H Magnesium Total Bilirubin AST ALT Alkaline Phosphatase Troponin I NT-Pro-B Natriuret Pep 1932 H Total Protein Albumin Globulin Albumin/Globulin Ratio TSH Urine Color Urine Appearance Urine pH Ur Specific [place] Urine Protein Urine Glucose (UA) Urine Ketones Urine Blood Urine Nitrite Urine Bilirubin Urine Urobilinogen Ur Leukocyte Esterase Urine WBC (Auto) Urine RBC (Auto) U Hyaline Cast (Auto) U Epithel Cells (Auto) Urine Bacteria (Auto) Digoxin COVID-19 Eval Order SARS-CoV-2 (PCR) NEGATIVE Diagnostic Findings Echo report from 12/03/2020 reviewed as noted above in HPI. ECG reviewed: ECG 12/04/2020 at 1:05 p.m.: Atrial flutter 92 bpm. Telemetry personally reviewed: Atrial flutter near 120 bpm rather consistently. Medications Administered Current Inpatient Medications Apixaban (Apixaban 2.5 Mg Tab) 2.5 mg PO BID [facility] Stop: 01/03/21 20:59 Last Admin: 12/05/20 08:31 Dose: 2.5 mg Documented by: Bumetanide (Bumetanide 1 Mg Tab) 3 mg PO QAM [facility] Stop: 01/04/21 08:59 Last Admin: 12/05/20 09:51 Dose: Not Given Documented by: Digoxin (Digoxin 0.25 Mg Tab) 0.25 mg PO QAM [facility] Stop: 01/04/21 08:59 Last Admin: 12/05/20 09:51 Dose: Not Given Documented by: Levothyroxine Sodium (Levothyroxine Sodium 25 Mcg Tablet) 25 mcg PO DAILYBB [facility] Stop: 01/04/21 06:29 Last Admin: 12/05/20 05:34 Dose: 25 mcg Documented by: Metoprolol Succinate (Metoprolol Succ 50mg Ext Rel Tab) 100 mg PO BID [facility] Stop: 01/03/21 20:59 Last Admin: 12/05/20 08:31 Dose: 100 mg Documented by: Pramipexole Dihydrochloride (Pramipexole Dihydrochlo 0.5 Mg Tab) 0.5 mg PO BID [facility] Stop: 01/03/21 20:59 Last Admin: 12/05/20 08:31 Dose: 0.5 mg Documented by: Spironolactone (Spironolactone 25 Mg Tab) 75 mg PO BID17 [facility] Stop: 01/03/21 21:44 Last Admin: 12/05/20 08:31 Dose: 75 mg Documented by: PG Care Time/CCT Total # of Minutes Spent Total Time Spent with Patient: Total time spent is greater than 50% in coordination of care (as documented) at patient's floor/unit and/or counseling patient: Coding Level of Care Code 13894 Initial Inpt Care Lvl 3 Diagnoses Atrial flutter I48.92 Atrial flutter type: unspecified Right heart failure I50.810 Chronic respiratory failure with hypoxia J96.11 ASD (atrial septal defect) Q21.1 Hypotension I95.9 (1) Atrial flutter Atrial flutter type: unspecified Qualified Code(s): I48.92 - Unspecified atrial flutter
--- NOTE | 2020-12-05 19:26 | Hospitalist Progress Note ---
Date of Service December 05, 2020 Assessment & Plan (1) Atrial flutter: Plan: - Presented with A flutter with RVR - was cardioverted on 12/05 to NSR with PVC and maintaining rates in the 80s - Stop Digoxin; Reduce Metoprolol Succ to 100 mg daily - Continue Eliquis 2.5 mg BID - Cardiology following - discussed with Dr. Peterson -- Continue AC x 4 weeks but indefinite AC is indicated -- If recurrence - could consider amiodarone; patient and would like to avoid ablation (2) Right heart failure: Plan: - Diurese as able depending on blood pressure and renal function. Appears right sided volume overloaded on echo however no significant pulmonary edema. - Suspect most likely right sided heart failure secondary to chronic respiratory failure, obesity hypoventilation and JHOANA therefore may find extra diuresis causes worsening renal function - Continue with usual Bumex dosing (3) CKD (chronic kidney disease) stage 3, GFR 30-59 ml/min: Plan: - Cr mildly worse than usual. Appears hypervolemic on exam. Monitor Cr - Continue spironolactone and Bumex (4) Sleep apnea: Plan: - BiPAP 12/6 HS and PRN (5) CLL (chronic lymphocytic leukemia): Plan: - Lymphocytes at baseline - Continue leg wraps for presumably lymphedema (6) Hypothyroidism: Plan: - Continue levothyroxine 25 mcg PO daily (7) Chronic respiratory failure with hypoxia: Plan: - Continue 2LPM O2. Wean as able to aim O2 > 90% Plan: Diet - Heart healthy Disposition - plan for D/C to [facility] tomorrow if remains without issue overnight Admission and Anticipated Discharge Date Admission Date: December 04, 2020 Subjective Pt was cardioverted today back to NSR with normal heart rates. She was restless, calling out, and a bit paranoid on assessment. However can recall the name of the admitting provider and what she was here for. Per case management discussion with Catarino patient is non-compliant with treatment plan at [facility] as well. Spoke with who said she has memory deficits and times and has gotten confused for periods but then it clears up. Also states she doesnt do we ll with caffeine. She was cooperative with my assessment but difficult to get a ROS as she seemed a bit unsure of the situation. Review of Systems Review of Systems: Limited ROS due to patient cooperation. States no chest pain or palpitations. She states she does get SOB but states that is normal and she doesn't think it has worsened. She is focused on an area that is itchy behind her R knee Physical Exam Physical Exam: PHYSICAL EXAM General Appearance: WDWN in NAD HEENT: Head is normocephalic/atraumatic; Hearing grossly intact Neck: Supple; Trachea midline; Neg JVD; Neg lymphadenopathy Heart: regular rhtyhm and tachycardic with no M/G/R Lungs: CTA in all lung levy bilaterally; Respirations unlabored; Neg accessory muscle use; NC in place Abdomen: Soft, non-tender, non-distended; Positive BS x 4 quadrants; Neg organomegaly Extremities: Capillary refill < 2 seconds; Neg cyanosis or edema; No evidence of lesion or rash behind R knee where she feels an itch Neurological: Speech clear; Gross motor/sensory function intact; Neg focal neurologic deficits Psychiatric: Pleasant with recall of admission events; appears to have some paranoid thinking and uncooperative with medications Skin: Normal Color; Warm/Dry; Neg rashes, ecchymosis, lacerations/ulcerations Results & Data Results & Data ([facility]) Vital Signs (Past 12 Hours) Vital Signs Temp Pulse Pulse Resp BP Pulse Ox 12/05/20 16:00 85 24 114/61 93 12/05/20 15:40 76 24 110/60 93 12/05/20 15:09 36.3 C L 79 24 92/66 L 93 12/05/20 14:45 78 18 106/80 95 12/05/20 14:31 82 18 108/70 98 12/05/20 10:54 36.5 C 121 H 23 101/65 98 12/05/20 08:00 123 H PG Care Time/CCT Total # of Minutes Spent Total Time Spent with Patient: Total time spent is greater than 50% in coordi nation of care (as documented) at patient's floor/unit and/or counseling patient: Coding Level of Care Code 34011 Subseq Obs Care Lvl 3 Diagnoses Atrial flutter I48.92 Right heart failure I50.810 CKD (chronic kidney disease) stage 3, GFR 30-59 ml/min N18.30 Sleep apnea G47.30 CLL (chronic lymphocytic leukemia) C91.90 Hypothyroidism E03.9 Chronic respiratory failure with hypoxia J96.11
--- NOTE | 2020-12-06 06:10 | Electrocardiogram Report ---
Test Reason : Blood Pressure : / mmHG Vent. Rate : 092 BPM Atrial Rate : 234 BPM P-R Int : 000 ms QRS Dur : 074 ms QT Int : 362 ms P-R-T Axes : 087 103 070 degrees QTc Int : 447 ms Atrial flutter with variable A-V block Rightward axis Nonspecific ST abnormality Abnormal ECG When compared with ECG of 08-AUG-2018 14:48, Atrial flutter has replaced Sinus rhythm Confirmed by Tima Peterson ([id number]) on 12/06/2020 6:10:05 AM Referred By: Catarino Sharpe Confirmed By:Tima Peterson
[2020-12-06] MEDS: LEVOTHYROXINE SODIUM 25 MCG TABLET PO SCH (06:40)
--- NOTE | 2020-12-06 07:41 | Electrocardiogram Report ---
Test Reason : Blood Pressure : / mmHG Vent. Rate : 084 BPM Atrial Rate : 084 BPM P-R Int : 208 ms QRS Dur : 072 ms QT Int : 346 ms P-R-T Axes : 079 106 077 degrees QTc Int : 408 ms Sinus rhythm with occasional Premature ventricular complexes Rightward axis Low voltage QRS Borderline ECG When compared with ECG of 04-DEC-2020 13:05, Sinus rhythm has replaced Atrial flutter Confirmed by Tima Peterson ([id number]) on 12/06/2020 7:41:23 AM Referred By: Catarino Sharpe Confirmed By:Tima Peterson
[2020-12-06 07:45] LABS: BUN Creatinine Ratio 21.3 (10-20); Calcium 9.8 mg/dl (8.5-10.1); Creatinine Clr Calc Pharmacy 22.2 ml/min; Est GFR (African American) 24.6 ml/min; Est GFR (Non-African American) 21.3 ml/min; Potassium 3.7 mmol/L (3.5-5.1)
[2020-12-06] MEDS ORDERED: METOPROLOL SUCC 50MG EXT REL TAB PO SCH (09:00)
[2020-12-06] MEDS: PRAMIPEXOLE DIHYDROCHLO 0.5 MG TAB PO SCH (09:29)
[2020-12-06] MEDS: SPIRONOLACTONE 25 MG TAB PO SCH (09:30)
[2020-12-06] MEDS: BUMETANIDE 1 MG TAB PO SCH (09:30)
[2020-12-06] MEDS: APIXABAN 2.5 MG TAB PO SCH (09:33)
--- NOTE | 2020-12-06 12:24 | Cardiology Progress Note ---
Date of Service December 06, 2020 Assessment & Plan (1) Atrial flutter: Plan: She appears to have undergone a successful cardioversion yesterday. She will continue on her apixaban. She can continue on her current dose of metoprolol succinate, 100 mg daily. Blood pressure overall appears improved. Digoxin discontinue (2) Right heart failure: (3) Chronic respiratory failure with hypoxia: Plan: Normal respiratory effort. (4) ASD (atrial septal defect): (5) Hypotension: Plan: Improved with reduced dose of metoprolol and returned to sinus rhythm Plan: ASSESSMENT/PLAN: She would likely be safe for discharge today from cardiac standpoint. Recurrent episodes of atrial fibrillation could be treated with amiodarone. She can follow-up in our clinic for continued monitoring. Admission and Anticipated Discharge Date Admission Date: December 04, 2020 Subjective This morning the patient was pleasant but confused. She offered no specific complaints. She is not reporting symptoms of chest discomfort or palpitation. No breathing difficulty. Review of Systems Review of Systems: Confused Physical Exam Physical Exam: She was confused Regular cardiac rhythm Normal respiratory effort Results & Data ([facility]) Vital Signs (Past 12 Hours) Vital Signs Temp Pulse Pulse Resp BP Pulse Ox 12/06/20 11:53 36.7 C 75 16 131/80 92 12/06/20 09:07 80 22 113/64 94 12/06/20 08:00 36.6 C 88 16 90/54 L 96 12/06/20 07:00 83 12/06/20 04:00 36.5 C 86 22 95/67 L 95 PG Care Time/CCT Total # of Minutes Spent Total Time Spent with Patient: Total time spent is greater than 50% in coordination of care (as documented) at patient's floor/unit and/or counseling patient: Coding Level of Care Code 55463 Subseq Hosp Care Lvl 2 Diagnoses Atrial flutter I48.92 Atrial flutter type: unspecified Right heart failure I50.810 Chronic respiratory failure with hypoxia J96.11 ASD (atrial septal defect) Q21.1 Hypotension I95.9 (1) Atrial flutter Atrial flutter type: unspecified Qualified Code(s): I48.92 - Unspecified atrial flutter
--- NOTE | 2020-12-06 14:31 | Discharge Summary ---
Date of Service December 06, 2020 Admission HPI Per Admitting Provider Kenzie Pritchard is an 84 year old female admission for atrial flutter with rapid ventricular rate. She reports having no symptoms at this time. No chest pain, shortness of breath, palpitations, orthopnea, PND. She has chronic leg swelling but unable to tell me whether this is worse than usual. She was sent to the ER by [facility] due to hypotension after recent adjustment to her medications by cardiology for new atrial flutter causing hypotension. Her care was discussed with cardiology by the ER physician and recommended inpatient admission to better control her atrial flutter at this time. Reportedly atrial flutter is a new diagnosis for her which started approximately 1.5 weeks ago. She has been started on anticoagulation with Eliquis and tried rate control with limited success. TTE on 12/03 showed no wall motion abnormalities but RV was dilated suggestive of hypervolemia. Principal Diagnosis Atrial Flutter with RVR Discharge Exam General Appearance: WDWN in NAD HEENT: Head is normocephalic/atraumatic; Hearing grossly intact Neck: Supple; Trachea midline; Neg JVD; Neg lymphadenopathy Heart: RRR with no M/G/R Lungs: CTA in all lung levy bilaterally; Respirations unlabored; Neg accessory muscle use Abdomen: Soft, non-tender, non-distended; Positive BS x 4 quadrants; Neg organomegaly Extremities: Capillary refill < 2 seconds; Neg cyanosis or edema; mild erythema of b/l legs and edema Neurological: Speech clear; Gross motor/sensory function intact; Neg focal neurologic deficits Psychiatric: Pleasant with recall of admission events and can recall names of providers; Appears to be at baseline mentation Skin: Normal Color; Warm/Dry Discharge Data Allergies Allergy/AdvReac Type Severity Reaction Status Date / Time Iodinated Contrast Media Allergy Unknown As Per Unverified 12/04/20 13:59 [facility] tramadol Allergy Unknown As Per Unverified 12/04/20 13:59 [facility] Consultations 12/04/20 17:12 ED Decision to Admit Stat 12/04/20 19:39 Consult Cardiology Routine 12/05/20 12:09 Consult Anesthesiology Routine Consult Anesthesiology Routine Procedures Performed Operation Date: 12/05/20 14:00 Actual Procedures p Echo Transesophageal - Tima Peterson MD s Echo Color Flow - Tima Peterson MD s Cardioversion - Tima Peterson MD s Doppler Echo Limited/Follow Up - Tima Peterson MD Hospital Course (1) Atrial flutter: - Presented with A flutter with RVR - was cardioverted on 12/05 to NSR with PACs and maintaining rates in the 70-80s - Stopped Digoxin; Reduce Metoprolol Succ to 100 mg daily - Continue Eliquis 2.5 mg BID - Cardiology followed -- Continue AC x 4 weeks at least given cardioversion but indefinite AC is indicated -- If recurrence - could consider amiodarone; patient and would like to avoid ablation (2) Right heart failure: - Diurese as able depending on blood pressure and renal function. Appears right sided volume overloaded on echo however no significant pulmonary edema. - Suspect most likely right sided heart failure secondary to chronic respiratory failure, obesity hypoventilation and JHOANA therefore may find extra diuresis c auses worsening renal function - Continue with usual Bumex/Spironolactone dosing can be monitored and adjusted as needed as outpatient -- Patient reports she does not like taking her diuretics in the afternoon due to night time urination - may be reason for her non-compliance with regimen at [facility] (3) CKD (chronic kidney disease) stage 3, GFR 30-59 ml/min: - Cr mildly worse than usual - may be in part due to being in RVR for extended period of time. Appears hypervolemic on exam. Monitor Cr routinely - Electrolytes are acceptable - Continue spironolactone and Bumex (4) Sleep apnea: - BiPAP 12/6 HS and PRN (5) CLL (chronic lymphocytic leukemia): - Lymphocytes at baseline - Continue leg wraps for presumably lymphedema (6) Hypothyroidism: - Continue levothyroxine 25 mcg PO daily (7) Chronic respiratory failure with hypoxia: - Continue 2LPM O2. Wean as able to aim O2 > 90% Diet - Heart healthy Disposition - plan for D/C to [facility] Total Time Total Time Spent Total Time Spent (In Minutes): Spent greater than 30 minutes preparing patient for discharge. This includes discussion with patient/family, assessment, intervention, medication reconciliation, and coordination of care. Discharge Plan Discharge Items Patient Disposition: Transfer Long Term Fac Reason For Visit: ATRIAL FLUTTER WITH RAPID VENTRICULAR RATE Discharge Diagnosis: Atrial Flutter with Rapid Ventricular Rate Condition on Discharge: Fair Activity: Resume your previous activity Non-emergency contact: Primary Care Provider Call non-emergency contact if: you have any medication questions, your symptoms worsen and you have a fever Follow-up/Referrals: Gallo Saravia MD [Primary Care Provider] - Diet: Heart Healthy Addtl Attending Provider Instructions: Atrial Flutter: - Attempts were made with medicine as an outpatient to control the heart rate. However rates remained in the 120s and blood pressures were softer. - She was cardioverted on 05 December which successfully put her in a normal sinus rhythm with heart rates in the 80s - Plan will be to discontinue Digoxin and reduce to Metoprolol Succ 100 mg daily -- Depending on further blood pressure readings may be able to reduce down further - Continue her normal diuretics. Patient does state she does not like taking the evening dose because of frequency of urination through the night. This may be beneficial to adjust as hopefully being in normal sinus may help with volume status. - Recommend continued daily weights and adjustments to diuretics as needed. She can follow[place] with [facility] -- Chest Xray did not reveal pneumonia or evidence of pulmonary edema, no effusions; evidence of stable enlarged pulmonary arteries - Recommend continued anti-coagulation for 4 weeks after cardioversion but she should be on it indefinitely unless bleeding risk outways risk of thrombus - Per cardiology, should she go back into atrial flutter they may need to consider amiodarone as rate controlling measures had limited value for her CKD Stage III: - Electrolytes are stable - Will need routine monitoring of renal function with diuretics Sleep Apnea: - Continue BiPAP CLL: - WBC/Lymphocytes remain at baseline - No evidence of infection; remains afebrile; urine culture with normal juan; some erythema of the lower legs likely related to chronic swelling; chest xray without pneumonia - Mentation has been good. She was restless the first night and calling out however improved during her stay. Her recall is intact and can recall providers names but does appear forgetful. Discussed with you said she does have moments of forgetfulness. Hypothyroidism: - Continue levothyroxine 25 mcg PO daily Chronic respiratory failure with hypoxia: - Continue O2 as needed; having appropriate saturations on room air since cardioversion -- Given evidence of enlarged pulmonary arteries and her chronic respiratory issues suspect she would have chronic shortness of breath Pending Studies at Discharge: No Stand-Alone Forms: My [facility] Skilled Items Patient informed of condition?: Yes DNR: Yes Discharge Level of Care: Skilled Communicable Disease: No Discharge Prognosis: Stable Lines: None Urinary Catheter: No Medications and DC Order Prescriptions: Continued alendronate 70 mg tablet 70 mg PO WK RF: 0 levothyroxine 25 mcg capsule 25 mcg PO QAM RF: 0 bumetanide 1 mg tablet 3 mg PO QAM RF: 0 acetaminophen [Tylenol] 325 mg capsule 325 mg PO QID PRN (Reason: Pain) RF: 0 mupirocin 2 % ointment 1 applic topical PM RF: 0 Eliquis 2.5 mg tablet 2.5 mg PO BID RF: 0 prenat.vits,radha,[id number] Tablet 1 tab PO QAM RF: 0 cholecalciferol (vitamin D3) 50 mcg (2,000 unit) capsule 50 mcg PO QAM RF: 0 spironolactone 50 mg tablet 75 mg PO BID RF: 0 Eucerin Eczema Relief 1 % cream 1 applic topical BID PRN (Reason: dry scaly skin) RF: 0 pramipexole 0.5 mg Tablet 0.5 mg PO BID RF: 0 Changed metoprolol succinate 100 mg tablet extended release 24 hr 100 mg PO DAILY Qty: 0 RF: 0 Discontinued digoxin 250 mcg (0.25 mg) tablet 250 mcg PO QAM RF: 0 Discharge Orders: Discharge Order (Routine); Ordered 12/06/20 Ordered By: Keely Platt Admission Data Admit Date/Time: 12/04/20 18:08 Attending Provider: Arnold Uribe Admit Provider: Carloz Riggs Primary Care Provider: Gallo Saravia Other Providers: Carloz Riggs ; Jeferson Dodge ; Keely Chanel ; Edy Soriano ; Terra Soriano ; Manish Mack ; Charo Villalobos ; Destiny Rashid ; Danya Fuller ; Drew Fuller V ; Ericka Ro ; René Marina ; Gena Yi ; Keely Colmenares ; Jose Luis Balderrama ; Mikey Santana ; Sheila Milian ; Jonathon Milian ; Anisa Tanner ; Arnold Mariscal ; Elen Umana ; Natacha Redding ; Sharmila Kitchen ; Sarabjit Ash ; Mona Cartagena ; Rogelio Pereira ; Jorge Choudhary ; Conor Blackman ; Aurea Noyola ; Alma Delia Sultana ; Conor Yung ; Jose Velazquez ; Giancarlo Stevenson ; Josué Lau ; Mekhi Lau ; Rik Omalley ; Rogelio Wen Jr ; Yulisa Lyons ; Brad Solis ; Mohan Harding ; Katherine Darnell ; Drew Genao ; Maykel Hunt ; Tonia Solomon ; Taty Rodriguez ; Ericka Marquis ; Cande Castillo ; Triston Castillo ; Ann Marie Aguilar ; Lars Hsieh ; Aisha Uribe ; Ann Marie Wesley ; Rc Barger ; Anamaria George ; Gm Wallace ; Zulma Ash ; Catarino Sharpe Other Interventions: Discharge Summary Assessment (RN) Last Done: 12/06/20 12:56 Supervising Physician Co-Signing Physician Notes Attending note: patient seen and examined with Keely Platt PA-C. I agree with her discharge summary. I personally reviewed the labs and imaging findings. patient is more pleasant and cooperative this morning, however she started to get combative in the afternoon prior to discharge on monitor she is in sinus rhythm, no issues with atrial fibrillation/flutter after cardioversion - Atrial fibrillation/flutter: s/p cardioversion, successful continue Toprol 100mg daily, stop Digoxin as it was not helping much if she would have recurrent episodes then could try Amiodarone Coding Level of Care Code D/C DAY MANAGEMENT >30 MINS Diagnoses Atrial flutter I48.92 Right heart failure I50.810 CKD (chronic kidney disease) stage 3, GFR 30-59 ml/min N18.30 Sleep apnea G47.30 CLL (chronic lymphocytic leukemia) C91.90 Hypothyroidism E03.9 Chronic respiratory failure with hypoxia J96.11
== END 2020-12-06 15:55 ==
LOC: 2S 12:55 → ED 12:55 → SUATTDRO 18:08 → 2S 19:01